=== PATIENT | female | born 1965 | race Caucasian/White ===

== ENCOUNTER 2020-03-06 18:28 | Emergency (ER) | payer OTHER ==
--- NOTE | 2020-03-06 19:07 | ED Physician Documentation ---
History of Present Illness - Stated complaint Stated Complaint: RT EAR PX/HEARING LOSS - Chief complaint Chief Complaint: Heent - History obtained from History obtained from: Patient (3 weeks of worsening right ear pain with loss of hearing. Some congestion and sinus pain to. No fevers.) Review of Systems Constitutional: denies: Fever, Chills Ears: reports: Ear pain. denies: Drainage/discharge Nose: reports: Rhinorrhea / runny nose, Congestion PD PAST MEDICAL HISTORY - Past Medical History Cardiovascular: Hypertension, High cholesterol Respiratory: None Neuro: None Endocrine/Autoimmune: None GI: None CARPENTER REPAIR: None : None HEENT: None Psych: None Musculoskeletal: None Derm: None - Past Surgical History Past Surgical History: Yes /CARPENTER REPAIR: section, Hysterectomy - Present Medications Home Medications: Ambulatory Orders Medication Instructions Recorded Confirmed Atorvastatin Calcium 40 mg PO DAILY 12/05/19 12/05/19 Cephalexin [Keflex] 500 mg PO Q6H #20 capsule 12/05/19 Lisinopril [Zestril] 20 mg PO DAILY 12/05/19 12/05/19 Phenazopyridine HCl [Pyridium] 200 mg PO TID PRN #6 tablet 12/05/19 hydroCHLOROthiazide 12.5 mg PO DAILY 12/05/19 12/05/19 [Hydrochlorothiazide] - Allergies Allergies/Adverse Reactions: Allergies Allergy/AdvReac Type Severity Reaction Status Date / Time No Known Drug Allergies Allergy Verified 03/06/20 18:34 - Social History Does the pt smoke?: No Smoking Status: Never smoker Does the pt drink ETOH?: No ETOH Use: Liquor Does the pt have substance abuse?: No - Immunizations Immunizations are current?: Yes - POLST Patient has POLST: No PD ED PE NORMAL - Vitals Vital signs reviewed: Yes - General General: Alert and oriented X 3, No acute distress - HEENT HEENT: Other (Initially unable to view the tympanic membrane on the right due to cerumen impaction. Left TM normal.) - Neck Neck: Supple, no meningeal sign, No bony TTP - Neuro Neuro: Alert and oriented X 3, Normal speech - Psych Psych: Normal mood, Normal affect Results - Vitals Vitals: Vital Signs - 24 hr 03/06/20 18:31 Temperature 37.2 C Heart Rate 90 Respiratory 16 Rate Blood Pressure 147/64 H O2 Saturation 97 Oxygen O2 Source Room air Procedures - General procedure General procedure: After syringe irrigation we were able to clear the right ear canal And subsequent examination showed no otitis media and her symptoms resolved. Departure - Departure Disposition: 01 Home, Self Care Clinical Impression: Impacted cerumen of right ear Condition: Good Record reviewed to determine appropriate education?: Yes Instructions: ED Earwax Removal
[2020-03-06 19:25] VITALS: BP 132/63
== END 2020-03-06 19:25 | disposition home or self-care (01) ==
LOC: ED 18:28
DX: H61.21 Impacted cerumen, right ear (principal); I10 Essential (primary) hypertension
CPT/HCPCS: 69209; 99281; 99282

== ENCOUNTER 2020-05-30 13:29 | Emergency (ER) | payer OTHER ==
--- NOTE | 2020-05-30 14:15 | ED Physician Documentation ---
PD HPI FEMALE - Stated complaint Stated Complaint: FEMALE - Chief complaint Chief Complaint: UTI - History obtained from History obtained from: Patient (54-year-old woman with relatively frequent UTIs presents with 3 days of urinary burning, suprapubic pressure, mild low back pain and generalized body aches consistent with prior episodes of UTI.) Review of Systems Constitutional: reports: Chills, Myalgias. denies: Fever GI: reports: Abdominal Pain. 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, Hysterectomy - Present Medications Home Medications: Ambulatory Orders Medication Instructions Recorded Confirmed Atorvastatin Calcium 40 mg PO DAILY 12/05/19 05/30/20 Lisinopril [Zestril] 20 mg PO DAILY 12/05/19 05/30/20 hydroCHLOROthiazide 12.5 mg PO DAILY 12/05/19 05/30/20 [Hydrochlorothiazide] levoFLOXacin [Levaquin] 250 mg PO DAILY #3 tablet 05/30/20 - Allergies Allergies/Adverse Reactions: Allergies Allergy/AdvReac Type Severity Reaction Status Date / Time No Known Drug Allergies Allergy Verified 05/30/20 13:58 - Social History Does the pt smoke?: No Smoking Status: Never smoker Does the pt drink ETOH?: No Does the pt have substance abuse?: No - Immunizations Immunizations are current?: Yes - POLST Patient has POLST: No PD ED PE NORMAL - Vitals Vital signs reviewed: Yes - General General: Alert and oriented X 3, No acute distress - Abdomen Abdomen: Soft, Non tender - Back Back: Other (Very mild bilateral CVA tenderness) - Neuro Neuro: Alert and oriented X 3, Normal speech Results - Vitals Vitals: Vital Signs - 24 hr 05/30/20 05/30/20 13:50 15:10 Temperature 36.6 C 36.6 C Heart Rate 89 88 Respiratory 16 88 H Rate Blood Pressure 153/66 H 148/70 H O2 Saturation 96 98 Oxygen O2 Source Room air - Labs Labs: Laboratory Tests 05/30/20 14:01 Urine Color YELLOW Urine Clarity CLEAR Urine pH 5.5 Ur Specific [place] >=1.030 H Urine Protein NEGATIVE Urine Glucose (UA) NEGATIVE Urine Ketones NEGATIVE Urine Occult Blood MODERATE H Urine Nitrite NEGATIVE Urine Bilirubin NEGATIVE Urine Urobilinogen 0.2 (NORMAL) Ur Leukocyte Esterase NEGATIVE Urine RBC 6-10 H Urine WBC 0-3 Ur Squamous Epith Cells FEW Squamous Urine Bacteria Few Urine Mucus Few Strands PD MEDICAL DECISION MAKING - ED course ED course: She presents with symptoms that are typical for recurrent cystitis. Urinalysis is relatively unimpressive with few bacteria and some blood. We will trial antibiotics, but she understands that if not improving quickly alternative diagnoses may need to be sought. Departure - Departure Disposition: Home, Self Care Clinical Impression: Cystitis Condition: Good Record reviewed to determine appropriate education?: Yes Instructions: ED UTI Cystitis Female Prescriptions: levoFLOXacin [Levaquin] 250 mg PO DAILY #3 tablet Comments: We will culture urine, if resistant bacteria isolated we will call [facility]. Return if worse. Discharge Date/Time: 05/30/20 15:10
[2020-05-30 14:42] LABS: BILIRUBIN,URINE NEGATIVE (NEGATIVE); GLUCOSE, URINE (UA) NEGATIVE (NEGATIVE); KETONES,URINE (UA) NEGATIVE (NEGATIVE); LEUKOCYTE ESTERASE, URINE NEGATIVE (NEGATIVE); NITRITE,URINE NEGATIVE (NEGATIVE); OCCULT BLOOD,URINE MODERATE (NEGATIVE); PH,URINE 5.5 PH (5.0-7.5); PROTEIN,URINE NEGATIVE (NEGATIVE); UROBILINOGEN,URINE 0.2 (NORMAL) E.U./dL (NORMAL)
[2020-05-30 14:45] LABS: CLARITY,URINE CLEAR (CLEAR)
[2020-05-30 14:57] LABS: BACTERIA,URINE Few /HPF (None Seen); MUCUS,URINE Few Strands; SQUAMOUS EPITHELIAL CELL,UR FEW Squamous (<= Few)
[2020-05-30] MEDS ORDERED: levoFLOXacin 250 MG TABLET PO STA (15:03)
[2020-05-30 15:12] VITALS: BP 148/70
== END 2020-05-30 15:10 | disposition home or self-care (01) ==
LOC: ED 13:29
DX: N30.91 Cystitis, unspecified with hematuria (principal); I10 Essential (primary) hypertension
CPT/HCPCS: 81001; 87086; 99283; A9270

== ENCOUNTER 2020-07-25 08:00 | Outpatient (CLI) | payer OTHER ==
[2020-07-25 12:04] LABS: BASOPHILS # (AUTO) 0.1 10^3/uL (0.0-0.1); BASOPHILS % (AUTO) 0.7 %; EOSINOPHILS # (AUTO) 0.1 10^3/uL (0.0-0.7); EOSINOPHILS % (AUTO) 0.7 %; HCT - HEMATOCRIT 44.7 % (37.0-47.0); HGB - HEMOGLOBIN 13.9 g/dL (12.0-16.0); LYMPHOCYTES # (AUTO) 2.3 10^3/uL (1.5-3.5); LYMPHOCYTES % (AUTO) 30.6 %; MEAN CORPUSCULAR HEMOGLOBIN 28.5 pg (27.0-31.0); MEAN CORPUSCULAR HGB CONC 31.1 g/dL (32.0-36.0); MEAN CORPUSCULAR VOLUME 91.6 fL (81.0-99.0); MEAN PLATELET VOLUME 9.7 fL (7.9-10.8); MONOCYTES # (AUTO) 0.6 10^3/uL (0.0-1.0); MONOCYTES % (AUTO) 8.1 %; NEUTROPHILS # (AUTO) 4.5 10^3/uL (1.5-6.6); NEUTROPHILS % (AUTO) 59.5 %; PLT - PLATELET COUNT 370 10^3/uL (130-450); RED BLOOD COUNT 4.88 10^6/uL (4.20-5.40); RED CELL DISTRIBUTION WIDTH 13.2 % (12.0-15.0); WHITE BLOOD COUNT 7.6 x10^3/uL (4.8-10.8)
[2020-07-25 12:24] LABS: ALBUMIN 4.5 g/dL (3.2-5.5); ALBUMIN/GLOBULIN RATIO 1.3 (1.0-2.2); ALKALINE PHOSPHATASE 55 IU/L (42-121); ALT ALANINE AMINOTRANSFERASE 48 IU/L (10-60); AST ASPARTATE AMINOTRANSFERASE 28 IU/L (10-42); BILIRUBIN,TOTAL 0.9 mg/dL (0.2-1.0); BUN - BLOOD UREA NITROGEN 18 mg/dL (6-20); CALCIUM 9.5 mg/dL (8.5-10.3); CARBON DIOXIDE - CO2 26 mmol/L (21-32); CHLORIDE 100 mmol/L (101-111); CHOL/HDL RATIO 8.4 (<4.4); CHOLESTEROL 388 mg/dL; CREATININE 0.7 mg/dL (0.4-1.0); GFR - MDRD 87 (>89); GLUCOSE 107 mg/dL (70-100); HDL CHOLESTEROL 46 mg/dL; LDL CHOLESTEROL,CALCULATED 294 mg/dL; LDL/HDL RATIO 6.4 (<4.4); POTASSIUM 3.9 mmol/L (3.5-5.0); SODIUM 137 mmol/L (135-145); TOTAL PROTEIN 8.1 g/dL (6.7-8.2); TRIGLYCERIDES 242 mg/dL; VLDL CHOLESTEROL 48 mg/dL
[2020-07-25 12:26] LABS: ESTIMATED AVERAGE GLUCOSE 111 mg/dL (70-100); HEMOGLOBIN A1c% 5.5 % (4.27-6.07)
[2020-07-25 12:33] LABS: THYROID STIMULATING HORMONE 1.46 uIU/mL (0.34-5.60)
== END 2020-07-25 23:59 | disposition home or self-care (01) ==
LOC: LAB.WCP 08:00
PROVIDERS: ATTEND Nurse Practitioner Family
DX: I10 Essential (primary) hypertension (principal); Z13.1 Encounter for screening for diabetes mellitus
CPT/HCPCS: 36415; 80053; 80061; 83036; 83721; 84443; 85025

== ENCOUNTER 2021-04-24 06:26 | Emergency (ER) | payer OTHER ==
[2021-04-24 06:34] VITALS: BP 183/83
[2021-04-24] MEDS ORDERED: CHERRY SYRUP 10 ML UDC PO ONE (06:43)
[2021-04-24] MEDS ORDERED: DEXAMETHASONE 10 MG/ML VIAL PO STA (06:43)
[2021-04-24 07:06] LABS: BASOPHILS # (AUTO) 0.1 10^3/uL (0.0-0.1); EOSINOPHILS # (AUTO) 0.4 10^3/uL (0.0-0.7); EOSINOPHILS % (AUTO) 6.5 %; HCT - HEMATOCRIT 45.3 % (37.0-47.0); HGB - HEMOGLOBIN 14.6 g/dL (12.0-16.0); LYMPHOCYTES # (AUTO) 2.1 10^3/uL (1.5-3.5); LYMPHOCYTES % (AUTO) 34.2 %; MEAN CORPUSCULAR HEMOGLOBIN 29.4 pg (27.0-31.0); MEAN CORPUSCULAR HGB CONC 32.2 g/dL (32.0-36.0); MEAN CORPUSCULAR VOLUME 91.1 fL (81.0-99.0); MEAN PLATELET VOLUME 9.1 fL (7.9-10.8); MONOCYTES # (AUTO) 0.5 10^3/uL (0.0-1.0); MONOCYTES % (AUTO) 8.3 %; NEUTROPHILS % (AUTO) 49.8 %; PLT - PLATELET COUNT 314 10^3/uL (130-450); RED BLOOD COUNT 4.97 10^6/uL (4.20-5.40)
[2021-04-24 07:08] LABS: RAPID STREP SCREEN Negative (Negative)
--- NOTE | 2021-04-24 07:15 | ED Physician Documentation ---
PD HPI HEENT - Stated complaint Stated Complaint: SWOLLEN FACE/LIPS - Chief complaint Chief Complaint: Heent - Additional information Additional information: Patient is a 55-year-old female presenting to the emergency department with sore throat, lip swelling, tender glands. Endorses for 1 week history of frequent sneezing, rhinorrhea and eye itchiness Which she attributed to her regular seasonal allergies. Reports 3 days ago began to experience swelling in her upper lip. States that this has been stable for the last day and has not gotten worse however does state that she is never experienced this in the past. Denies any swelling in the lower lip, tongue or sensations of swelling in the back of her throat. Denies any changes in medications or contact with known allergens. Does report that she continues to have tender lymph nodes in her neck. Review of Systems Ten Systems: 10 systems reviewed and negative Constitutional: denies: Fever Cardiac: denies: Chest pain / pressure Respiratory: denies: Dyspnea GI: denies: Abdominal Pain : denies: Dysuria Skin: denies: Rash Musculoskeletal: denies: Neck pain Neurologic: denies: Generalized weakness Psychiatric: denies: Depressed PD PAST MEDICAL HISTORY - Past Medical History Past Medical History: Yes Cardiovascular: Hypertension, High cholesterol Respiratory: None Neuro: None Endocrine/Autoimmune: None GI: None ORAL AND MAXILLOFACIAL SURGERY: None : None HEENT: None Psych: None Musculoskeletal: None Derm: None - Past Surgical History Past Surgical History: Yes /ORAL AND MAXILLOFACIAL SURGERY: section, Hysterectomy - Present Medications Home Medications: Ambulatory Orders Medication Instructions Recorded Confirmed Atorvastatin Calcium 40 mg PO DAILY 12/05/19 05/30/20 Lisinopril [Zestril] 20 mg PO DAILY 12/05/19 05/30/20 hydroCHLOROthiazide 12.5 mg PO DAILY 12/05/19 05/30/20 [Hydrochlorothiazide] levoFLOXacin [Levaquin] 250 mg PO DAILY #3 tablet 05/30/20 - Allergies Allergies/Adverse Reactions: Allergies Allergy/AdvReac Type Severity Reaction Status Date / Time simvastatin [From Zocor] AdvReac Unknown Verified 04/24/21 06:34 - Social History Does the pt smoke?: No Smoking Status: Never smoker Does the pt drink ETOH?: No Does the pt have substance abuse?: No - Immunizations Immunizations are current?: Yes - POLST Patient has POLST: No PD ED PE NORMAL - Vitals Vital signs reviewed: Yes - General General: Alert and oriented X 3 - Cardiac Cardiac: RRR - Respiratory Respiratory: No respiratory distress - Abdomen Abdomen: Normal bowel sounds, Non tender - Female Female : Deferred - Rectal Rectal: Deferred - Derm Derm: Normal color PD ED PE EXPANDED - HEENT HEENT: Other (Patient has a modest amount of soft tissue swelling to her upper lip as well as yellow crusted lesions below her naris consistent with impetigo.) Results - Vitals Vitals: Vital Signs - 24 hr 04/24/21 06:32 Temperature 36.3 C L Heart Rate 88 Respiratory 16 Rate Blood Pressure 183/83 H O2 Saturation 98 Oxygen O2 Source Room air - Labs Labs: Laboratory Tests 04/24/21 04/24/21 06:44 07:00 WBC 6.0 RBC 4.97 Hgb 14.6 Hct 45.3 MCV 91.1 MCH 29.4 MCHC 32.2 RDW 13.0 Plt Count 314 MPV 9.1 Neut # (Auto) 3.0 Lymph # (Auto) 2.1 Jones # (Auto) 0.5 Eos # (Auto) 0.4 Baso # (Auto) 0.1 Absolute Nucleated RBC 0.00 Nucleated RBC % 0.0 Group A Strep Rapid Negative PD MEDICAL DECISION MAKING - ED course Complexity details: reviewed results, d/w patient ED course: Patient is a 55-year-old female presenting with 1 week history of upper respiratory tract infection as well as 3 days of swelling to her upper lip, crusting below her nose consistent with impetigo, sore throat and bilateral jugulodigastric adenopathy. Afebrile, hemodynamically stable on arrival to the emergency department. Physical exam did demonstrate some swelling to her tonsils as well as tender adenopathy of the jugulodigastric nodes however there was no indication of peritonsillar abscess, retropharyngeal abscess or other deep space neck infection. I did obtain basic labs which were within Normal limits are generally nonactionable. She received a dose of Decadron in the emergency department and I did order for mupirocin for the soft tissue infection of her upper lip. At this time I will be signing out to the oncoming physician, please see their documentation for further detail.
[2021-04-24 07:16] LABS: INFECTIOUS MONONUCLEOSIS NEGATIVE (Negative)
[2021-04-24 07:19] LABS: ALBUMIN 4.6 g/dL (3.2-5.5); ALBUMIN/GLOBULIN RATIO 1.1 (1.0-2.2); BILIRUBIN,TOTAL 1.1 mg/dL (0.2-1.0); CALCIUM 9.4 mg/dL (8.5-10.3); CREATININE 0.6 mg/dL (0.4-1.0); POTASSIUM 3.8 mmol/L (3.5-5.0); TOTAL PROTEIN 8.6 g/dL (6.7-8.2)
[2021-04-24] MEDS ORDERED: cephALEXin 250 MG CAPSULE PO STA (07:25)
--- NOTE | 2021-04-24 07:26 | ED Physician Documentation ---
ED Addendum - Addendum Addendum: 04/24/21 07:[address] Crisostomo at shift change. Briefly this is a 55-year-old woman who has had maybe 36 hours of a rash and swelling of the upper lip. She was seen at the bedside and examined. She appears to have impetigo of the upper lip with some upper lip swelling. She will be treated with topical and oral antibiotics. Disposition: Discharged home Condition: Stable Prescriptions: 1. Keflex 500 mg p.o. 4 times daily for 7 days 2. Mupirocin ointment applied to affected area twice daily #2 tubes Diagnoses 1. Facial impetigo 2. Reactive adenopathy
[2021-04-24] MEDS ORDERED: ALBUTEROL NEB 2.5 MG/3 ML INH ONE (09:29)
== END 2021-04-24 07:38 | disposition home or self-care (01) ==
LOC: ED 06:26
DX: L01.00 Impetigo, unspecified (principal); R59.9 Enlarged lymph nodes, unspecified; I10 Essential (primary) hypertension
CPT/HCPCS: 36415; 80053; 85025; 86308; 87070; 87430; 99283; A9270

== ENCOUNTER 2021-11-25 18:56 | Emergency (ER) | payer OTHER ==
--- NOTE | 2021-11-25 20:02 | XRAY Report ---
PROCEDURE: Chest 2 View X-Ray INDICATIONS: cough TECHNIQUE: 2 view(s) of the chest. COMPARISON: None. FINDINGS: Surgical changes and devices: None. Lungs and pleura: No pleural effusions or pneumothorax. Lungs are clear. Mediastinum: Mediastinal contours are normal. Heart size is normal. Bones and chest wall: No suspicious bony abnormalities. Soft tissues appear unremarkable. IMPRESSION: No acute cardiopulmonary pathology. Reviewed by: Dewayne Wilcox MD on 11/25/2021 8:01 PM PDT Approved by: Dewayne Wilcox MD on 11/25/2021 8:01 PM PDT Station ID: [id number]
[2021-11-25] MEDS ORDERED: BENZONATATE 100 MG CAPSULE PO STA (20:04)
[2021-11-25] MEDS ORDERED: IBUPROFEN 800 MG TABLET PO STA (20:04)
[2021-11-25] MEDS ORDERED: PSEUDOEPHEDRINE 30 MG TABLET PO STA (20:04)
[2021-11-25 20:20] LABS: CORONAVIRUS 229E-RESP PCR NOT DETECTED; CORONAVIRUS HKU1-RESP PCR NOT DETECTED
[2021-11-25 20:21] LABS: B. PARAPERTUSSIS- RESP PCR PAN NOT DETECTED; B. PERTUSSIS- RESP PCR PANEL NOT DETECTED; C. PNEUMONIAE- RESP PCR PANEL NOT DETECTED; CORONAVIRUS NL63-RESP PCR DETECTED; CORONAVIRUS OC43-RESP PCR NOT DETECTED; HUMAN METAPNEUMOVIRUS NOT DETECTED; INFLUENZA A- RESP PCR PANEL NOT DETECTED; INFLUENZA B - RESP PCR PANEL NOT DETECTED; M. PNEUMONIAE- RESP PCR PANEL NOT DETECTED; PARAINFLUENZA VIRUS 1 NOT DETECTED; PARAINFLUENZA VIRUS 2 NOT DETECTED; PARAINFLUENZA VIRUS 3 NOT DETECTED; PARAINFLUENZA VIRUS 4 NOT DETECTED; RHINOVIRUS/ENTEROVIRUS NOT DETECTED; RSV- RESP PCR PANEL NOT DETECTED; SARS-CoV-2 -RESP PCR PANEL NOT DETECTED
--- NOTE | 2021-11-25 20:54 | ED Physician Documentation ---
PD HPI URI - Stated complaint Stated Complaint: FEVER/COUGH - Chief complaint Chief Complaint: Resp - History obtained from History obtained from: Patient - History of Present Illness Timing - onset: Today Pain level max: 6 Pain level now: 5 Associated symptoms: Fever, Chills, Nasal congestion, Rhinorrhea, Dry cough Contributing factors: Sick contact (Multiple children sick with same) Improves by: Rest Worsened by: Activity, Breathing - Additional information Additional information: Patient is a 56-year-old female who presents to the emergency department stating that she has had a cough and feeling feverish for the past 3 to 4 days. Took multiple COVID tests at home which were negative. [place] [employer] [place] She has had a history of pneumonia. Concerned about potential pneumonia. 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, Hysterectomy - Present Medications Home Medications: Ambulatory Orders Medication Instructions Recorded Confirmed Atorvastatin Calcium 40 mg PO DAILY 12/05/19 05/30/20 Lisinopril [Zestril] 20 mg PO DAILY 12/05/19 05/30/20 hydroCHLOROthiazide 12.5 mg PO DAILY 12/05/19 05/30/20 [Hydrochlorothiazide] levoFLOXacin [Levaquin] 250 mg PO DAILY #3 tablet 05/30/20 Mupirocin 2% Oint [Bactroban 2% 1 applic TOP BID #2 tub 04/24/21 Oint] cephALEXin [Keflex] 500 mg PO Q6H #28 cap 04/24/21 Benzonatate [Tessalon] 200 mg PO TID PRN #30 cap 11/25/21 Cetirizine HCl/Pseudoephedrine 1 each PO BID PRN #30 ea 11/25/21 [Zyrtec-D Tablet] - Allergies Allergies/Adverse Reactions: Allergies Allergy/AdvReac Type Severity Reaction Status Date / Time simvastatin [From Zocor] AdvReac Unknown Verified 12/21/21 06:34 - Social History Does the pt smoke?: No Smoking Status: Never smoker Does the pt drink ETOH?: No Does the pt have substance abuse?: No - Immunizations Immunizations are current?: Yes - POLST Patient has POLST: No PD ED PE NORMAL - Vitals Vital signs reviewed: Yes - General General: Alert and oriented X 3, No acute distress - HEENT HEENT: PERRL, Moist mucous membranes - Neck Neck: Supple, no meningeal sign - Cardiac Cardiac: RRR, Strong equal pulses - Respiratory Respiratory: No respiratory distress, Clear bilaterally - Abdomen Abdomen: Soft, Non tender, Non distended - Derm Derm: Warm and dry - Neuro Neuro: Alert and oriented X 3 - Psych Psych: Normal mood, Normal affect Results - Vitals Vitals: Vital Signs - 24 hr 11/25/21 11/25/21 19:10 21:35 Temperature 37.4 C Heart Rate 108 H 93 Respiratory 20 18 Rate Blood Pressure 162/82 H 158/79 H O2 Saturation 97 98 Oxygen O2 Source Room air - Labs Labs: Laboratory Tests 11/25/21 19:13 Nasal Adenovirus (PCR) NOT DETECTED Nasal B. parapertussis DNA (PCR) NOT DETECTED Nasal Coronavir 229E PCR NOT DETECTED Nasal Coronavir HKU1 PCR NOT DETECTED Nasal Coronavir NL63 PCR DETECTED A Nasal Coronavir OC43 PCR NOT DETECTED Nasal Enterovir/Rhinovir PCR NOT DETECTED Nasal Influenza B PCR NOT DETECTED Nasal Influenza A PCR NOT DETECTED Nasal Parainfluen 1 PCR NOT DETECTED Nasal Parainfluen 2 PCR NOT DETECTED Nasal Parainfluen 3 PCR NOT DETECTED Nasal Parainfluen 4 PCR NOT DETECTED Nasal RSV (PCR) NOT DETECTED Nasal B.pertussis DNA PCR NOT DETECTED Nasal C.pneumoniae (PCR) NOT DETECTED Ramiro Human Metapneumo PCR NOT DETECTED Nasal M.pneumoniae (PCR) NOT DETECTED Nasal SARS-CoV-2 (PCR) NOT DETECTED - Rads (name of study) cxr Radiology: Final report received, EMP read contemporaneously, See rad report PD MEDICAL DECISION MAKING - ED course Complexity details: reviewed results, re-evaluated patient, considered differential, d/w patient ED course: Patient is well-appearing, nontoxic. Afebrile. No hypoxia. No evidence of pneumonia on chest x-ray. Positive for coronavirus but not COVID. Feels better after Sudafed, Motrin and Tessalon. We will prescribe Sudafed and Tessalon for home. We will have her follow-up with her doctor for further care. Patient counseled regarding signs and symptoms for which I believe and urgent re- evaluation would be necessary. Patient with good understanding of and agreement to plan and is comfortable going home at this time This document was made in part using voice recognition software. While efforts are made to proofread this document, sound alike and grammatical errors may occur. Departure - Departure Disposition: Home, Self Care Clinical Impression: Viral URI Condition: Good Instructions: ED Viral Syndrome Follow-Up: Teresa Kearney PA [Primary Care Provider] - Within 1 week Prescriptions: Benzonatate [Tessalon] 200 mg PO TID PRN #30 cap PRN Reason: Cough Cetirizine HCl/Pseudoephedrine [Zyrtec-D Tablet] 1 each PO BID PRN #30 ea PRN Reason: nasal congestion Comments: Your prescriptions were sent to [facility] pharmacy. Please follow-up with your doctor for further care. You have tested positive for coronavirus, but this is a different coronavirus than COVID. Drink plenty of fluids and rest. You do not have pneumonia. Return if you worsen. Forms: Activity restrictions Discharge Date/Time: 11/25/21 21:36
[2021-11-25 21:36] VITALS: BP 158/79
== END 2021-11-25 21:36 | disposition home or self-care (01) ==
LOC: ED 18:56
DX: J06.9 Acute upper respiratory infection, unspecified (principal); B97.29 Other coronavirus as the cause of diseases classified elsewhere; Z20.822 Contact with and (suspected) exposure to COVID-19
CPT/HCPCS: 71046; 87633; 99282; 99284; A9270

== ENCOUNTER 2022-01-03 10:23 | Outpatient (CLI) | payer OTHER ==
--- NOTE | 2022-01-03 11:35 | MRI Report ---
PROCEDURE: Brain W/O INDICATIONS: MIXED HEADACHE TECHNIQUE: Noncontrast axial T1 spin echo, axial T2 fast spin echo, sagittal and axial FLAIR, coronal T2 fast sp in echo, axial gradient echo, axial diffusion and ADC through the brain. COMPARISON: None. FINDINGS: Image quality: Excellent. CSF Spaces: Basal cisterns are patent. No extra-axial fluid collections. Ventricles are normal in size and shape. Brain: No intracranial masses or hemorrhage. Ramos/white matter interface is normal. Brainstem appe ars normal. Diffusion-weighted images demonstrate no acute ischemic insult. No chronic ischemic ins ults. Normal intravascular flow voids are present. Skull and face: Calvarium has normal marrow signal. Orbits appear normal. Sinuses: Aerated secretions and mucosal thickening in the bilateral maxillary sinuses, sphenoid sinus es, anterior ethmoid air cells. IMPRESSION: Mucosal thickening and aerated secretions in the bilateral maxillary sinuses, anterior ethmoid air ce lls, and sphenoid sinuses. Correlate for acute sinusitis. Otherwise unremarkable MRI of the brain. Reviewed by: Berlin Corley MD on 01/03/2022 11:34 AM PDT Approved by: Berlin Corley MD on 01/03/2022 11:34 AM PDT Station ID: [id number]
== END 2022-01-03 10:24 | disposition home or self-care (01) ==
LOC: DI 10:23
PROVIDERS: ATTEND Physician Assistant
DX: G44.89 Other headache syndrome (principal)

== ENCOUNTER 2022-07-17 07:42 | Outpatient (CLI) | payer OTHER ==
[2022-07-17 07:53] LABS: BASOPHILS # (AUTO) 0.1 10^3/uL (0.0-0.1); BASOPHILS % (AUTO) 0.7 %; EOSINOPHILS # (AUTO) 0.1 10^3/uL (0.0-0.7); EOSINOPHILS % (AUTO) 1.3 %; HCT - HEMATOCRIT 41.9 % (37.0-47.0); HGB - HEMOGLOBIN 13.2 g/dL (12.0-16.0); LYMPHOCYTES # (AUTO) 2.1 10^3/uL (1.5-3.5); LYMPHOCYTES % (AUTO) 26.1 %; MEAN CORPUSCULAR HEMOGLOBIN 28.8 pg (27.0-31.0); MEAN CORPUSCULAR HGB CONC 31.5 g/dL (32.0-36.0); MEAN CORPUSCULAR VOLUME 91.5 fL (81.0-99.0); MEAN PLATELET VOLUME 8.7 fL (7.9-10.8); MONOCYTES # (AUTO) 0.6 10^3/uL (0.0-1.0); MONOCYTES % (AUTO) 7.3 %; NEUTROPHILS # (AUTO) 5.3 10^3/uL (1.5-6.6); NEUTROPHILS % (AUTO) 64.4 %; PLT - PLATELET COUNT 339 10^3/uL (130-450); RED BLOOD COUNT 4.58 10^6/uL (4.20-5.40); WHITE BLOOD COUNT 8.2 x10^3/uL (4.8-10.8)
[2022-07-17 08:13] LABS: ALBUMIN 4.2 g/dL (3.2-5.5); ALBUMIN/GLOBULIN RATIO 1.2 (1.0-2.2); ALKALINE PHOSPHATASE 60 IU/L (42-121); ALT ALANINE AMINOTRANSFERASE 35 IU/L (10-60); AST ASPARTATE AMINOTRANSFERASE 21 IU/L (10-42); BILIRUBIN,TOTAL 0.7 mg/dL (0.2-1.0); BUN - BLOOD UREA NITROGEN 12 mg/dL (6-20); CALCIUM 9.2 mg/dL (8.5-10.3); CARBON DIOXIDE - CO2 30 mmol/L (21-32); CHLORIDE 98 mmol/L (101-111); CHOL/HDL RATIO 5.4 (<4.4); CHOLESTEROL 214 mg/dL; CREATININE 0.7 mg/dL (0.4-1.0); GFR - MDRD 86 (>89); GLUCOSE 98 mg/dL (70-100); HDL CHOLESTEROL 40 mg/dL; LDL CHOLESTEROL,CALCULATED 138 mg/dL; LDL/HDL RATIO 3.5 (<4.4); POTASSIUM 3.4 mmol/L (3.5-5.0); SODIUM 137 mmol/L (135-145); TOTAL PROTEIN 7.6 g/dL (6.7-8.2); TRIGLYCERIDES 178 mg/dL; VLDL CHOLESTEROL 36 mg/dL
[2022-07-17 08:23] LABS: THYROID STIMULATING HORMONE 0.88 uIU/mL (0.34-5.60)
[2022-07-17 11:16] LABS: ESTIMATED AVERAGE GLUCOSE 117 mg/dL (70-100); HEMOGLOBIN A1c% 5.7 % (4.27-6.07)
== END 2022-07-17 07:43 | disposition home or self-care (01) ==
LOC: LAB 07:42
PROVIDERS: ATTEND Internal Medicine Cardiovascular Disease
DX: E78.5 Hyperlipidemia, unspecified (principal); Z13.1 Encounter for screening for diabetes mellitus; R00.2 Palpitations; I10 Essential (primary) hypertension
CPT/HCPCS: 36415; 80053; 80061; 83036; 83721; 84443; 85025

== ENCOUNTER 2022-08-08 21:50 | Emergency (ER) | payer OTHER ==
--- OUTSIDE RECORDS SUMMARY | 2022-08-08 22:50 | EXTERNAL MEDICAL SUMMARY RPT | Continuity of Care Document ---
:1965 Author Organization [facility] Address [address] [place] [address] Phone Care Team Providers Name Role Phone Jessica Juarez Unavailable Unavailable Allergies No information. Encounters No information. Functional Status No information. Immunizations No information. Medications date description facility 2022-07-07 00:00 Phenazopyridine [facility] 2022-07-07 00:00 Lisinopril-Hydrochlorothiazide [facility] 2022-07-07 00:00 Cephalexin [facility] 2022-07-07 00:00 [facility] Problems date description facility 2022-07-07 11:27 [facility] 2022-07-07 11:35 [facility] 2022-07-08 00:36 [facility] Procedures No information. Results/Labs test date author facility value unit interpret ation Result panel 1 (unknown) (no (unknown) (unknown) (no value) (units (unk nown) date) unknown) (unknown) (no (unknown) (unknown) 07/07/22 (units (unkno wn) date) unknown) (unknown) (no (unknown) (unknown) Age/Sex: 57 / F (units (unknown) date) Date of Service: unknown) (unknown) (no (unknown) (unknown) Allergies (units (unkn own) date) unknown) (unknown) (no (unknown) (unknown) [facility] (units (unknown) date) Medicine unknown) (unknown) (no (unknown) (unknown) Ranjana ID (units ( unknown) date) [id number] unknown) (unknown) (no (unknown) (unknown) Attending Dr: (units ( unknown) date) Tara Gibson unknown) BREAD DUMPER (unknown) (no (unknown) (unknown) : 1965 (units (unknown) date) Acct:[id number] unknown) (unknown) (no (unknown) (unknown) Dept at (units (unkno wn) date) . unknown) (unknown) (no (unknown) (unknown) Documented By: (units (unknown) date) Barney Gibsonne unknown) [facility] 07/07/22 1126 (unknown) (no (unknown) (unknown) Draft (units (unkno wn) date) unknown) (unknown) (no (unknown) (unknown) Intake Note: (units (u nknown) date) unknown) (unknown) (no (unknown) (unknown) Intake performed (units (unknown) date) by: unknown) Hira Montgomery (unknown) (no (unknown) (unknown) Intake (units (unkno wn) date) unknown) (unknown) (no (unknown) (unknown) Intake- Clincial (units (unknown) date) Staff unknown) (unknown) (no (unknown) (unknown) LEG PAIN, (units (unkn own) date) STIFFNESS unknown) (unknown) (no (unknown) (unknown) Loc: [facility] (units (unkno wn) date) unknown) (unknown) (no (unknown) (unknown) [id number] (units (unk nown) date) unknown) (unknown) (no (unknown) (unknown) No Known Drug (units ( unknown) date) Allergies Allergy unknown) (Unknown, Unverified 08/13/17 12:18) (unknown) (no (unknown) (unknown) Patient: (units (unkno wn) date) Ioana Clemons unknown) R MR#: (unknown) (no (unknown) (unknown) Pt presents for (units (unknown) date) a possible UTI. 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 (units (unknown) date) If there are any unknown) questions, please contact the Medical Records (unknown) (no (unknown) (unknown) may occur. (units (unk nown) date) Occasional unknown) wrong-word or 'sound-alike' substitutions may have (unknown) (no (unknown) (unknown) occurred due to (units (unknown) date) the inherent unknown) limitations of voice recognition software. Please (unknown) (no (unknown) (unknown) read the note (units ( unknown) date) carefully and unknown) recognize, using context, where these substitutions (unknown) (no (unknown) (unknown) simvastatin (units (un known) date) [From ZOCOR] unknown) Adverse Reaction (Severe, Unverified 08/13/17 12:18) (unknown) (no (unknown) (unknown) software. 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 Result panel 2 (unknown) (no (unknown) (unknown) (no value) (units (unk nown) date) unknown) (unknown) (no (unknown) (unknown) 07/07/22 (units (unkno wn) date) unknown) (unknown) (no (unknown) (unknown) 11:35 (units (unkno wn) date) unknown) (unknown) (no (unknown) (unknown) Age/Sex: 57 / F (units (unknown) date) Date of Service: unknown) (unknown) (no (unknown) (unknown) Allergies (units (unkn own) date) unknown) (unknown) (no (unknown) (unknown) [facility] (units (unknown) date) Medicine unknown) (unknown) (no (unknown) (unknown) [place] (units ( unknown) date) [id number] unknown) (unknown) (no (unknown) (unknown) Assessment + (units (u nknown) date) Plan unknown) (unknown) (no (unknown) (unknown) Attending Dr: (units ( unknown) date) Tara Gibson unknown) BREAD DUMPER (unknown) (no (unknown) (unknown) BMI 32.0 (units (unkno wn) date) unknown) (unknown) (no (unknown) (unknown) BP 124/72 (units (unkn own) date) unknown) (unknown) (no (unknown) (unknown) Blood Pressure (units (unknown) date) Location Lt unknown) brachial (unknown) (no (unknown) (unknown) : 1965 (units (unknown) date) Acct:[id number] unknown) (unknown) (no (unknown) (unknown) Dept at (units (unkno wn) date) . unknown) (unknown) (no (unknown) (unknown) Documented By: (units (unknown) date) Tara Gibson unknown) BREAD DUMPER 07/07/22 1126 (unknown) (no (unknown) (unknown) Draft (units (unkno wn) date) unknown) (unknown) (no (unknown) (unknown) Height 5 ft 2 in (units (unknown) date) unknown) (unknown) (no (unknown) (unknown) Intake Note: (units (u nknown) date) unknown) (unknown) (no (unknown) (unknown) Intake performed (units (unknown) date) by: unknown) Hira Montgomery (unknown) (no (unknown) (unknown) Intake (units (unkno wn) date) unknown) (unknown) (no (unknown) (unknown) Intake- Clincial (units (unknown) date) Staff unknown) (unknown) (no (unknown) (unknown) LEG PAIN, (units (unkn own) date) STIFFNESS unknown) (unknown) (no (unknown) (unknown) Loc: [facility] (units (unkno wn) date) unknown) (unknown) (no (unknown) (unknown) [id number] (units (unk nown) date) unknown) (unknown) (no (unknown) (unknown) Medications (units (un known) date) unknown) (unknown) (no (unknown) (unknown) No Known Drug (units ( unknown) date) Allergies Allergy unknown) (Unknown, Unverified 07/07/22 11:34) (unknown) (no (unknown) (unknown) Orders (units (unkno wn) date) unknown) (unknown) (no (unknown) (unknown) Orders: (units (unkno wn) date) unknown) (unknown) (no (unknown) (unknown) Oxygen Delivery (units (unknown) date) Method room air unknown) (unknown) (no (unknown) (unknown) [facility] (units (unkno wn) date) unknown) (unknown) (no (unknown) (unknown) POC Urine Dip (units ( unknown) date) Today R30.0 - unknown) Dysuria (unknown) (no (unknown) (unknown) Patient: (units (unkno wn) date) Ioana Clemons unknown) R MR#: (unknown) (no (unknown) (unknown) Position Sitting (units (unknown) date) unknown) (unknown) (no (unknown) (unknown) Pt presents for (units (unknown) date) a possible UTI. unknown) Having burning and urgency for 3 days. (unknown) (no (unknown) (unknown) Pulse 86 (units (unkno wn) date) unknown) (unknown) (no (unknown) (unknown) Pulse Oximetry (units (unknown) date) (%) 99 unknown) (unknown) (no (unknown) (unknown) Pulse Source (units (u nknown) date) Monitor unknown) (unknown) (no (unknown) (unknown) Reason For Visit (units (unknown) date) unknown) (unknown) (no (unknown) (unknown) Respiration 14 (units (unknown) date) unknown) (unknown) (no (unknown) (unknown) Signed By: (units (unk nown) date) unknown) (unknown) (no (unknown) (unknown) Smoking Status: (units (unknown) date) Never smoker unknown) (unknown) (no (unknown) (unknown) Temp 97.8 F (units (un known) date) unknown) (unknown) (no (unknown) (unknown) Temp Source Skin (units (unknown) date) unknown) (unknown) (no (unknown) (unknown) This note may (units ( unknown) date) have been all or unknown) partially generated using voice recognition (unknown) (no (unknown) (unknown) Tobacco + (units (unkn own) date) Substance Use unknown) (unknown) (no (unknown) (unknown) Tobacco Status (units (unknown) date) unknown) (unknown) (no (unknown) (unknown) Urine Culture (units ( unknown) date) Today R30.0 - unknown) Dysuria (unknown) (no (unknown) (unknown) Visit Reasons: (units (unknown) date) [employer] poss UTI unknown) (unknown) (no (unknown) (unknown) Vitals (units (unkno wn) date) unknown) (unknown) (no (unknown) (unknown) Walk In Clinic (units (unknown) date) Visit unknown) (unknown) (no (unknown) (unknown) Weight 175 lb 4 (units (unknown) date) oz unknown) (unknown) (no (unknown) (unknown) [History (units (unkno wn) date) Confirmed unknown) 07/07/22] (unknown) (no (unknown) (unknown) atorvastatin 10 (units (unknown) date) mg tablet 10 mg unknown) PO DAILY 07/07/22 [History Confirmed 07/07/22] (unknown) (no (unknown) (unknown) have occurred. (units (unknown) date) If there are any unknown) questions, please contact the Medical Records (unknown) (no (unknown) (unknown) lisinopril 20 (units ( unknown) date) mg-hydrochlorothi unknown) azide 25 mg tablet 1 tab PO DAILY 07/07/22 (unknown) (no (unknown) (unknown) may occur. (units (unk nown) date) Occasional unknown) wrong-word or 'sound-alike' substitutions may have (unknown) (no (unknown) (unknown) occurred due to (units (unknown) date) the inherent unknown) limitations of voice recognition software. Please (unknown) (no (unknown) (unknown) read the note (units ( unknown) date) carefully and unknown) recognize, using context, where these substitutions (unknown) (no (unknown) (unknown) simvastatin (units (un known) date) [From ZOCOR] unknown) Adverse Reaction (Severe, Unverified 07/07/22 11:34) (unknown) (no (unknown) (unknown) software. 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 Result panel 3 (unknown) (no (unknown) (unknown) (no value) (units (unk nown) date) unknown) (unknown) (no (unknown) (unknown) (1) UTI (urinary (units (unknown) date) tract infection): unknown) (unknown) (no (unknown) (unknown) 07/07/22 1143 (units ( unknown) date) unknown) (unknown) (no (unknown) (unknown) 07/07/22 (units (unkno wn) date) unknown) (unknown) (no (unknown) (unknown) 07/07/22] (units (unkn own) date) unknown) (unknown) (no (unknown) (unknown) 11:35 (units (unkno wn) date) unknown) (unknown) (no (unknown) (unknown) Age/Sex: 57 / F (units (unknown) date) Date of Service: unknown) (unknown) (no (unknown) (unknown) Allergies (units (unkn own) date) unknown) (unknown) (no (unknown) (unknown) [facility] (units (unknown) date) Medicine unknown) (unknown) (no (unknown) (unknown) [place] (units ( unknown) date) [id number] unknown) (unknown) (no (unknown) (unknown) Assessment + Plan (units (unknown) date) unknown) (unknown) (no (unknown) (unknown) Attending Dr: (units ( unknown) date) Tara Gibson unknown) BREAD DUMPER (unknown) (no (unknown) (unknown) BMI 32.0 (units (unkno wn) date) unknown) (unknown) (no (unknown) (unknown) BP 124/72 (units (unkn own) date) unknown) (unknown) (no (unknown) (unknown) Blood Pressure (units (unknown) date) Location Lt unknown) brachial (unknown) (no (unknown) (unknown) Chief Complaint (units (unknown) date) unknown) (unknown) (no (unknown) (unknown) Chief Complaint: (units (unknown) date) Dysuria unknown) (unknown) (no (unknown) (unknown) Const (units (unkno wn) date) unknown) (unknown) (no (unknown) (unknown) : 1965 (units (unknown) date) Acct:[id number] unknown) (unknown) (no (unknown) (unknown) Dept at (units (unkno wn) date) . unknown) (unknown) (no (unknown) (unknown) Details: (units (unkno wn) date) unknown) (unknown) (no (unknown) (unknown) Documented By: (units (unknown) date) Tara Gibson unknown) BREAD DUMPER 07/07/22 1126 (unknown) (no (unknown) (unknown) Effort + (units (unkno wn) date) Inspection: normal unknown) respiratory effort (unknown) (no (unknown) (unknown) Exam (units (unkno wn) date) unknown) (unknown) (no (unknown) (unknown) Eyes (units (unkno wn) date) unknown) (unknown) (no (unknown) (unknown) GI (units (unkno wn) date) unknown) (unknown) (no (unknown) (unknown) (units (unkno wn) date) unknown) (unknown) (no (unknown) (unknown) General: (units (unkno wn) date) appearance normal, unknown) both eyes and all related structures (unknown) (no (unknown) (unknown) General: (units (unkno wn) date) cooperative, unknown) healthy appearing, comfortable and no acute distress (unknown) (no (unknown) (unknown) General: no (units (un known) date) rashes or lesions unknown) noted (unknown) (no (unknown) (unknown) HENMT (units (unkno wn) date) unknown) (unknown) (no (unknown) (unknown) HPI and exam (units (u nknown) date) indicate need for unknown) point of care urine testing which does indicate (unknown) (no (unknown) (unknown) HPI (units (unkno wn) date) unknown) (unknown) (no (unknown) (unknown) Head: normal to (units (unknown) date) inspection unknown) (unknown) (no (unknown) (unknown) Height 157.48 cm (units (unknown) date) unknown) (unknown) (no (unknown) (unknown) Inspection: (units (un known) date) normal to unknown) inspection (unknown) (no (unknown) (unknown) Intake Note: (units (u nknown) date) unknown) (unknown) (no (unknown) (unknown) Intake performed (units (unknown) date) by: Hira Montgomery unknown) (unknown) (no (unknown) (unknown) Intake (units (unkno wn) date) unknown) (unknown) (no (unknown) (unknown) Intake- Clincial (units (unknown) date) Staff unknown) (unknown) (no (unknown) (unknown) LEG PAIN, (units (unkn own) date) STIFFNESS unknown) (unknown) (no (unknown) (unknown) Loc: [facility] (units (unkno wn) date) unknown) (unknown) (no (unknown) (unknown) [id number] (units (unk nown) date) unknown) (unknown) (no (unknown) (unknown) Medications (units (un known) date) unknown) (unknown) (no (unknown) (unknown) Medications: (units (u nknown) date) unknown) (unknown) (no (unknown) (unknown) Neck (units (unkno wn) date) unknown) (unknown) (no (unknown) (unknown) Neck: normal (units (u nknown) date) visual inspection unknown) and full ROM (unknown) (no (unknown) (unknown) New (units (unkno wn) date) unknown) (unknown) (no (unknown) (unknown) No CVA tenderness (units (unknown) date) unknown) (unknown) (no (unknown) (unknown) No Known Drug (units ( unknown) date) Allergies Allergy unknown) (Unknown, Unverified 07/07/22 11:34) (unknown) (no (unknown) (unknown) Orders (units (unkno wn) date) unknown) (unknown) (no (unknown) (unknown) Orders: (units (unkno wn) date) unknown) (unknown) (no (unknown) (unknown) Other: (units (unkno wn) date) unknown) (unknown) (no (unknown) (unknown) Oxygen Delivery (units (unknown) date) Method room air unknown) (unknown) (no (unknown) (unknown) PFSH (units (unkno wn) date) unknown) (unknown) (no (unknown) (unknown) POC Urine Dip (units ( unknown) date) Today R30.0 - unknown) Dysuria (unknown) (no (unknown) (unknown) Palpation: soft (units (unknown) date) unknown) (unknown) (no (unknown) (unknown) Patient presents (units (unknown) date) to walk-in clinic unknown) with complaints of dysuria, urinary urgency (unknown) (no (unknown) (unknown) Patient: (units (unkno wn) date) Ioana Clemons R unknown) MR#: (unknown) (no (unknown) (unknown) Plan (units (unkno wn) date) unknown) (unknown) (no (unknown) (unknown) Position Sitting (units (unknown) date) unknown) (unknown) (no (unknown) (unknown) Pt presents for a (units (unknown) date) possible UTI. unknown) Having burning and urgency for 3 days. (unknown) (no (unknown) (unknown) Pulse 86 (units (unkno wn) date) unknown) (unknown) (no (unknown) (unknown) Pulse Oximetry (units (unknown) date) (%) 99 unknown) (unknown) (no (unknown) (unknown) Pulse Source (units (u nknown) date) Monitor unknown) (unknown) (no (unknown) (unknown) Qualifiers: (units (un known) date) unknown) (unknown) (no (unknown) (unknown) Reason For Visit (units (unknown) date) unknown) (unknown) (no (unknown) (unknown) Resp (units (unkno wn) date) unknown) (unknown) (no (unknown) (unknown) Respiration 14 (units (unknown) date) unknown) (unknown) (no (unknown) (unknown) She denies fever, (units (unknown) date) vomiting, unknown) diarrhea, vaginal discharge or lesions. Patient (unknown) (no (unknown) (unknown) Signed By: (units (unk nown) date) <Electronically unknown) signed by Tara Gibson> (unknown) (no (unknown) (unknown) Signed (units (unkno wn) date) unknown) (unknown) (no (unknown) (unknown) Skin (units (unkno wn) date) unknown) (unknown) (no (unknown) (unknown) Smoking Status: (units (unknown) date) Never smoker unknown) (unknown) (no (unknown) (unknown) Suprapubic (units (unk nown) date) tenderness and unknown) pressure with palpation (unknown) (no (unknown) (unknown) Temp 97.8 F (units (un known) date) unknown) (unknown) (no (unknown) (unknown) Temp Source Skin (units (unknown) date) unknown) (unknown) (no (unknown) (unknown) This note may (units ( unknown) date) have been all or unknown) partially generated using voice recognition (unknown) (no (unknown) (unknown) Tobacco + (units (unkn own) date) Substance Use unknown) (unknown) (no (unknown) (unknown) Tobacco Status (units (unknown) date) unknown) (unknown) (no (unknown) (unknown) Tylenol/ibuprofen (units (unknown) date) for pain or unknown) discomfort. 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 She is (units (un known) date) alert, oriented unknown) and comfortable (unknown) (no (unknown) (unknown) and frequency for (units (unknown) date) 3 days. Patient unknown) also has suprapubic pressure and back pain. (unknown) (no (unknown) (unknown) atorvastatin 10 (units (unknown) date) mg tablet 10 mg PO unknown) DAILY 07/07/22 [History Confirmed 07/07/22] (unknown) (no (unknown) (unknown) cephalexin 500 mg (units (unknown) date) PO QID 5 days 20 unknown) caps 0RF (unknown) (no (unknown) (unknown) cephalexin 500 mg (units (unknown) date) capsule 500 mg PO unknown) QID 5 days #20 caps 07/07/22 [Rx Confirmed (unknown) (no (unknown) (unknown) denies chance of (units (unknown) date) STDs. She is been unknown) trying to drink a lot of water to help with (unknown) (no (unknown) (unknown) have occurred. If (units (unknown) date) there are any unknown) questions, please contact the Medical Records (unknown) (no (unknown) (unknown) hematuria (units (unkn own) date) Qualified Code(s): unknown) N30.01 - Acute cystitis with hematuria (unknown) (no (unknown) (unknown) lisinopril 20 (units ( unknown) date) mg-hydrochlorothia unknown) zide 25 mg tablet 1 tab PO DAILY 07/07/22 (unknown) (no (unknown) (unknown) may occur. (units (unk nown) date) Occasional unknown) wrong-word or 'sound-alike' substitutions may have (unknown) (no (unknown) (unknown) occurred due to (units (unknown) date) the inherent unknown) limitations of voice recognition software. Please (unknown) (no (unknown) (unknown) phenazopyridine (units (unknown) date) (Pyridium) 200 mg unknown) PO TID 6 doses 6 tabs 0RF (unknown) (no (unknown) (unknown) phenazopyridine (units (unknown) date) 200 mg tablet unknown) (Pyridium) 200 mg PO TID 6 doses #6 tabs 07/07/22 (unknown) (no (unknown) (unknown) read the note (units ( unknown) date) carefully and unknown) recognize, using context, where these substitutions (unknown) (no (unknown) (unknown) simvastatin [From (units (unknown) date) ZOCOR] Adverse unknown) Reaction (Severe, Unverified 07/07/22 11:34) (unknown) (no (unknown) (unknown) software. 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 Follow-up with primary care as needed (unknown) (no (unknown) (unknown) symptoms. Patient (units (unknown) date) did take Pyridium unknown) that she had left over from about a year (unknown) (no (unknown) (unknown) that patient has (units (unknown) date) urinary tract unknown) infection with positive blood and leukocytes. We (unknown) (no (unknown) (unknown) will start (units (unk nown) date) antibiotics, and unknown) send urine off for culture. Rest, increase fluids. Result panel 4 (unknown) (no (unknown) (unknown) (no value) (units (unk nown) date) unknown) (unknown) (no (unknown) (unknown) (1) UTI (urinary (units (unknown) date) tract infection): unknown) (unknown) (no (unknown) (unknown) ADDENDUM (units (u nknown) date) unknown) (unknown) (no (unknown) (unknown) 07/07/22 1143 (units ( unknown) date) unknown) (unknown) (no (unknown) (unknown) 07/07/22 1244 (units ( unknown) date) unknown) (unknown) (no (unknown) (unknown) 07/07/22 12:44 (units (unknown) date) unknown) (unknown) (no (unknown) (unknown) 07/07/22 (units (unkno wn) date) unknown) (unknown) (no (unknown) (unknown) 07/07/22] (units (unkn own) date) unknown) (unknown) (no (unknown) (unknown) 11:35 (units (unkno wn) date) unknown) (unknown) (no (unknown) (unknown) 12:44 (units (unkno wn) date) unknown) (unknown) (no (unknown) (unknown) 4 (units (unkno wn) date) unknown) (unknown) (no (unknown) (unknown) :44 (units (unkno wn) date) unknown) (unknown) (no (unknown) (unknown) AZO (units (unkno wn) date) unknown) (unknown) (no (unknown) (unknown) Addendum (units (unkno wn) date) Documented By: MA unknown) Hira Montgomery (unknown) (no (unknown) (unknown) Addendum Signed (units (unknown) date) By: unknown) (unknown) (no (unknown) (unknown) Age/Sex: 57 / F (units (unknown) date) Date of Service: unknown) (unknown) (no (unknown) (unknown) Allergies (units (unkn own) date) unknown) (unknown) (no (unknown) (unknown) [facility] (units (unknown) date) Medicine unknown) (unknown) (no (unknown) (unknown) [place] (units ( unknown) date) [id number] unknown) (unknown) (no (unknown) (unknown) Assessment + Plan (units (unknown) date) unknown) (unknown) (no (unknown) (unknown) Attending Dr: (units ( unknown) date) Tara Gibson unknown) BREAD DUMPER (unknown) (no (unknown) (unknown) BMI 32.0 (units (unkno wn) date) unknown) (unknown) (no (unknown) (unknown) BP 124/72 (units (unkn own) date) unknown) (unknown) (no (unknown) (unknown) Blood Pressure (units (unknown) date) Location Lt unknown) brachial (unknown) (no (unknown) (unknown) Chief Complaint (units (unknown) date) unknown) (unknown) (no (unknown) (unknown) Chief Complaint: (units (unknown) date) Dysuria unknown) (unknown) (no (unknown) (unknown) Const (units (unkno wn) date) unknown) (unknown) (no (unknown) (unknown) : 1965 (units (unknown) date) Acct:[id number] unknown) (unknown) (no (unknown) (unknown) Dept at (units (unkno wn) date) . unknown) (unknown) (no (unknown) (unknown) Details: (units (unkno wn) date) unknown) (unknown) (no (unknown) (unknown) Documented By: (units (unknown) date) Tara Gibson unknown) BREAD DUMPER 07/07/22 1126 (unknown) (no (unknown) (unknown) Effort + (units (unkno wn) date) Inspection: normal unknown) respiratory effort (unknown) (no (unknown) (unknown) Exam (units (unkno wn) date) unknown) (unknown) (no (unknown) (unknown) Eyes (units (unkno wn) date) unknown) (unknown) (no (unknown) (unknown) GI (units (unkno wn) date) unknown) (unknown) (no (unknown) (unknown) (units (unkno wn) date) unknown) (unknown) (no (unknown) (unknown) General: (units (unkno wn) date) appearance normal, unknown) both eyes and all related structures (unknown) (no (unknown) (unknown) General: (units (unkno wn) date) cooperative, unknown) healthy appearing, comfortable and no acute distress (unknown) (no (unknown) (unknown) General: no (units (un known) date) rashes or lesions unknown) noted (unknown) (no (unknown) (unknown) HENMT (units (unkno wn) date) unknown) (unknown) (no (unknown) (unknown) HPI and exam (units (u nknown) date) indicate need for unknown) point of care urine testing which does indicate (unknown) (no (unknown) (unknown) HPI (units (unkno wn) date) unknown) (unknown) (no (unknown) (unknown) Head: normal to (units (unknown) date) inspection unknown) (unknown) (no (unknown) (unknown) Height 157.48 cm (units (unknown) date) unknown) (unknown) (no (unknown) (unknown) Inspection: (units (un known) date) normal to unknown) inspection (unknown) (no (unknown) (unknown) Intake Note: (units (u nknown) date) unknown) (unknown) (no (unknown) (unknown) Intake performed (units (unknown) date) by: Hira Montgomery unknown) (unknown) (no (unknown) (unknown) Intake (units (unkno wn) date) unknown) (unknown) (no (unknown) (unknown) Intake- Clincial (units (unknown) date) Staff unknown) (unknown) (no (unknown) (unknown) LEG PAIN, (units (unkn own) date) STIFFNESS unknown) (unknown) (no (unknown) (unknown) Loc: [facility] (units (unkno wn) date) unknown) (unknown) (no (unknown) (unknown) [id number] (units (unk nown) date) unknown) (unknown) (no (unknown) (unknown) Medications (units (un known) date) unknown) (unknown) (no (unknown) (unknown) Medications: (units (u nknown) date) unknown) (unknown) (no (unknown) (unknown) Neck (units (unkno wn) date) unknown) (unknown) (no (unknown) (unknown) Neck: normal (units (u nknown) date) visual inspection unknown) and full ROM (unknown) (no (unknown) (unknown) New (units (unkno wn) date) unknown) (unknown) (no (unknown) (unknown) No CVA tenderness (units (unknown) date) unknown) (unknown) (no (unknown) (unknown) No Known Drug (units ( unknown) date) Allergies Allergy unknown) (Unknown, Unverified 07/07/22 11:34) (unknown) (no (unknown) (unknown) Office Procedure (units (unknown) date) Documentation unknown) entered by Hira Montgomery MA 07/07/22 12:44: (unknown) (no (unknown) (unknown) Orders (units (unkno wn) date) unknown) (unknown) (no (unknown) (unknown) Orders: (units (unkno wn) date) unknown) (unknown) (no (unknown) (unknown) Other: (units (unkno wn) date) unknown) (unknown) (no (unknown) (unknown) Oxygen Delivery (units (unknown) date) Method room air unknown) (unknown) (no (unknown) (unknown) PFSH (units (unkno wn) date) unknown) (unknown) (no (unknown) (unknown) POC Urine Dip (units ( unknown) date) Today R30.0 - unknown) Dysuria (unknown) (no (unknown) (unknown) Palpation: soft (units (unknown) date) unknown) (unknown) (no (unknown) (unknown) Patient presents (units (unknown) date) to walk-in clinic unknown) with complaints of dysuria, urinary urgency (unknown) (no (unknown) (unknown) Patient: (units (unkno wn) date) Ioana Clemons R unknown) MR#: (unknown) (no (unknown) (unknown) Plan (units (unkno wn) date) unknown) (unknown) (no (unknown) (unknown) Position Sitting (units (unknown) date) unknown) (unknown) (no (unknown) (unknown) Pt presents for a (units (unknown) date) possible UTI. unknown) Having burning and urgency for 3 days. (unknown) (no (unknown) (unknown) Pulse 86 (units (unkno wn) date) unknown) (unknown) (no (unknown) (unknown) Pulse Oximetry (units (unknown) date) (%) 99 unknown) (unknown) (no (unknown) (unknown) Pulse Source (units (u nknown) date) Monitor unknown) (unknown) (no (unknown) (unknown) Qualifiers: (units (un known) date) unknown) (unknown) (no (unknown) (unknown) Reason For Visit (units (unknown) date) unknown) (unknown) (no (unknown) (unknown) Resp (units (unkno wn) date) unknown) (unknown) (no (unknown) (unknown) Respiration 14 (units (unknown) date) unknown) (unknown) (no (unknown) (unknown) Results (units (unkno wn) date) unknown) (unknown) (no (unknown) (unknown) She denies fever, (units (unknown) date) vomiting, unknown) diarrhea, vaginal discharge or lesions. Patient (unknown) (no (unknown) (unknown) Signed By: (units (unk nown) date) <Electronically unknown) signed by Tara Gibson> (unknown) (no (unknown) (unknown) Signed with (units (un known) date) Addenda unknown) (unknown) (no (unknown) (unknown) Skin (units (unkno wn) date) unknown) (unknown) (no (unknown) (unknown) Smoking Status: (units (unknown) date) Never smoker unknown) (unknown) (no (unknown) (unknown) Suprapubic (units (unk nown) date) tenderness and unknown) pressure with palpation (unknown) (no (unknown) (unknown) Temp 97.8 F (units (un known) date) unknown) (unknown) (no (unknown) (unknown) Temp Source Skin (units (unknown) date) unknown) (unknown) (no (unknown) (unknown) This note may (units ( unknown) date) have been all or unknown) partially generated using voice recognition (unknown) (no (unknown) (unknown) Tobacco + (units (unkn own) date) Substance Use unknown) (unknown) (no (unknown) (unknown) Tobacco Status (units (unknown) date) unknown) (unknown) (no (unknown) (unknown) Tylenol/ibuprofen (units (unknown) date) for pain or unknown) discomfort. Return to the emergency department if (unknown) (no (unknown) (unknown) Urinary tract (units ( unknown) date) infection type: unknown) acute cystitis Hematuria presence: with (unknown) (no (unknown) (unknown) Urine Appearance (units (unknown) date) Cloudy Last Edit unknown) by Hira Montgomery MA on 07/07/22 12:44 (unknown) (no (unknown) (unknown) Urine Bilirubin (units (unknown) date) 2+ 2 mg/dL Last unknown) Edit by Hira Montgomery MA on 07/07/22 12:4 (unknown) (no (unknown) (unknown) Urine Blood 1+ 25 (units (unknown) date) Rene/uL Last Edit unknown) by Hira Montgomery MA on 07/07/22 12:44 (unknown) (no (unknown) (unknown) Urine Color (units (un known) date) [place] Last Edit unknown) by Hira Montgomery MA on 07/07/22 12:44 (unknown) (no (unknown) (unknown) Urine Culture (units ( unknown) date) Today R30.0 - unknown) Dysuria (unknown) (no (unknown) (unknown) Urine Dipstick (units (unknown) date) unknown) (unknown) (no (unknown) (unknown) Urine Glucose +- (units (unknown) date) 100 mg/dL mg/dL unknown) Last Edit by Hira Montgomery MA on 07/07/22 (unknown) (no (unknown) (unknown) Urine Ketones (units ( unknown) date) Negative Last Edit unknown) by Hira Montgomery MA on 07/07/22 12:44 (unknown) (no (unknown) (unknown) Urine Leukocyte (units (unknown) date) Esterase 3+ 500 unknown) Tiara/uL Last Edit by Hira Montgomery MA on (unknown) (no (unknown) (unknown) Urine Nitrate (units ( unknown) date) Positive Last Edit unknown) by Hira Montgomery MA on 07/07/22 12:44 (unknown) (no (unknown) (unknown) Urine Protein (units ( unknown) date) Negative Last Edit unknown) by Hira Montgomery MA on 07/07/22 12:44 (unknown) (no (unknown) (unknown) Urine Specific (units (unknown) date) [place] 1.010 Last unknown) Edit by Hira Montgomery MA on 07/07/22 12 (unknown) (no (unknown) (unknown) Urine (units (unkno wn) date) Urobilinogen 2+ 4 unknown) mg/dL Last Edit by Hira Montgomery MA on 07/07/22 (unknown) (no (unknown) (unknown) Urine pH 5.5 Last (units (unknown) date) Edit by Hira unknown) ROSA Montgomery on 07/07/22 12:44 (unknown) (no (unknown) (unknown) 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 She is (units (un known) date) alert, oriented unknown) and comfortable (unknown) (no (unknown) (unknown) and frequency for (units (unknown) date) 3 days. Patient unknown) also has suprapubic pressure and back pain. (unknown) (no (unknown) (unknown) atorvastatin 10 (units (unknown) date) mg tablet 10 mg PO unknown) DAILY 07/07/22 [History Confirmed 07/07/22] (unknown) (no (unknown) (unknown) cephalexin 500 mg (units (unknown) date) PO QID 5 days 20 unknown) caps 0RF (unknown) (no (unknown) (unknown) cephalexin 500 mg (units (unknown) date) capsule 500 mg PO unknown) QID 5 days #20 caps 07/07/22 [Rx Confirmed (unknown) (no (unknown) (unknown) denies chance of (units (unknown) date) STDs. She is been unknown) trying to drink a lot of water to help with (unknown) (no (unknown) (unknown) have occurred. If (units (unknown) date) there are any unknown) questions, please contact the Medical Records (unknown) (no (unknown) (unknown) hematuria (units (unkn own) date) Qualified Code(s): unknown) N30.01 - Acute cystitis with hematuria (unknown) (no (unknown) (unknown) lisinopril 20 (units ( unknown) date) mg-hydrochlorothia unknown) zide 25 mg tablet 1 tab PO DAILY 07/07/22 (unknown) (no (unknown) (unknown) may occur. (units (unk nown) date) Occasional unknown) wrong-word or 'sound-alike' substitutions may have (unknown) (no (unknown) (unknown) occurred due to (units (unknown) date) the inherent unknown) limitations of voice recognition software. Please (unknown) (no (unknown) (unknown) phenazopyridine (units (unknown) date) (Pyridium) 200 mg unknown) PO TID 6 doses 6 tabs 0RF (unknown) (no (unknown) (unknown) phenazopyridine (units (unknown) date) 200 mg tablet unknown) (Pyridium) 200 mg PO TID 6 doses #6 tabs 07/07/22 (unknown) (no (unknown) (unknown) read the note (units ( unknown) date) carefully and unknown) recognize, using context, where these substitutions (unknown) (no (unknown) (unknown) simvastatin [From (units (unknown) date) ZOCOR] Adverse unknown) Reaction (Severe, Unverified 07/07/22 11:34) (unknown) (no (unknown) (unknown) software. 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 Follow-up with primary care as needed (unknown) (no (unknown) (unknown) symptoms. Patient (units (unknown) date) did take Pyridium unknown) that she had left over from about a year (unknown) (no (unknown) (unknown) that patient has (units (unknown) date) urinary tract unknown) infection with positive blood and leukocytes. We (unknown) (no (unknown) (unknown) will start (units (unk nown) date) antibiotics, and unknown) send urine off for culture. Rest, increase fluids. Result panel 5 (unknown) (no (unknown) (unknown) >100,000 cfu/ml (unkno wn) date) (unknown) (no (unknown) (unknown) GNBGram negative (units (unknown) date) bacilli unknown) (unknown) (no (unknown) (unknown) Identification (units (unknown) date) and Sensitivity to unknown) Follow Result panel 6 (unknown) (no (unknown) (unknown) >100,000 cfu/ml (unkno wn) date) (unknown) (no (unknown) (unknown) <=0.12 (units (unkno wn) date) unknown) (unknown) (no (unknown) (unknown) <=0.25 (units (unkno wn) date) unknown) (unknown) (no (unknown) (unknown) <=0.5 (units (unkno wn) date) unknown) (unknown) (no (unknown) (unknown) <=1 (units (unkno wn) date) unknown) (unknown) (no (unknown) (unknown) <=16 (units (unkno wn) date) unknown) (unknown) (no (unknown) (unknown) <=2 (units (unkno wn) date) unknown) (unknown) (no (unknown) (unknown) <=20 (units (unkno wn) date) unknown) (unknown) (no (unknown) (unknown) <=4 (units (unkno wn) date) unknown) (unknown) (no (unknown) (unknown) 4 (units (unkno wn) date) unknown) (unknown) (no (unknown) (unknown) ESCCOLEscherichia (units (unknown) date) coli unknown) (unknown) (no (unknown) (unknown) No Further Workup (units (unknown) date) unknown) Social History date description facility 2022-07-07 00:00 Never smoked tobacco ([facility] Vital Signs date measurement value units 2022-07-07 00:00 BMI 32.0 kg/m2 2022-07-07 00:00 BP_diastolic 72 mmHg 2022-07-07 00:00 BP_systolic 124 mmHg 2022-07-07 00:00 heart_rate 86 /min 2022-07-07 00:00 height_metric 157.48 cm 2022-07-07 00:00 height_standard 62 in 2022-07-07 00:00 o2_saturation 99 % 2022-07-07 00:00 respiration_rate 14 /min 2022-07-07 00:00 temperature_metric 36.56 C 2022-07-07 00:00 temperature_standard 97.8 F 2022-07-07 00:00 weight_metric 79.49 kg 2022-07-07 00:00 weight_standard 175.25 lb
[2022-08-08 22:51] LABS: BASOPHILS # (AUTO) 0.1 10^3/uL (0.0-0.1); BASOPHILS % (AUTO) 0.6 %; EOSINOPHILS # (AUTO) 0.2 10^3/uL (0.0-0.7); EOSINOPHILS % (AUTO) 2.7 %; HGB - HEMOGLOBIN 12.7 g/dL (12.0-16.0); LYMPHOCYTES # (AUTO) 3.1 10^3/uL (1.5-3.5); LYMPHOCYTES % (AUTO) 34.5 %; MEAN CORPUSCULAR HEMOGLOBIN 29.3 pg (27.0-31.0); MEAN CORPUSCULAR HGB CONC 31.8 g/dL (32.0-36.0); MEAN CORPUSCULAR VOLUME 92.2 fL (81.0-99.0); MEAN PLATELET VOLUME 9.3 fL (7.9-10.8); MONOCYTES # (AUTO) 0.8 10^3/uL (0.0-1.0); MONOCYTES % (AUTO) 9.1 %; NEUTROPHILS # (AUTO) 4.8 10^3/uL (1.5-6.6); NEUTROPHILS % (AUTO) 52.9 %; PLT - PLATELET COUNT 390 10^3/uL (130-450); RED BLOOD COUNT 4.34 10^6/uL (4.20-5.40); RED CELL DISTRIBUTION WIDTH 13.3 % (12.0-15.0); WHITE BLOOD COUNT 9.1 x10^3/uL (4.8-10.8)
--- NOTE | 2022-08-08 22:51 | ED Physician Documentation ---
PD HPI CHEST PAIN - Stated complaint Stated Complaint: LT ARM PX, HIGH BP - Chief complaint Chief Complaint: General - History obtained from History obtained from: Patient, Family - History of Present Illness Timing - onset: Enter time (1999), Today Timing - onset during: Rest Timing - duration: Minutes (20) Timing - details: Abrupt onset, Now resolved Pain level max: 10 Pain level now: 0 Quality: Tightness, Aching, Sharp Location: Left shoulder/arm Radiation: Left upper extremity Improved by: Rest Associated symptoms: Nausea, Feeling faint / dizzy. No: Shortness of air, Diaphoresis, Vomiting, General Weakness, Palpitations, Cough Similar symptoms before: Has not had sx before Recently seen: Not recently seen - Additional information Additional information: Previously well Catherine Clemons is a 57-year-old female with a history of hypertension who went to go to bed this evening at about 8 PM and had the onset of some pain in her left axilla that radiated down her left arm she states it was very hard pain and she did not developed diaphoresis with this but she did become slightly nauseous and had some mild dizziness. She has a prior history of dizziness and has had a prior echocardiogram which was normal. 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 She does not have prior issue with OR. The patient does indicate that she is under a lot of stress at work. She does take her medications daily and states that she has been compliant with her blood pressure medicine. Review of Systems Constitutional: denies: Fever Eyes: denies: Decreased vision Ears: denies: Ear pain Nose: denies: Rhinorrhea / runny nose, Congestion Throat: denies: Sore throat Cardiac: denies: Chest pain / pressure, Palpitations Respiratory: denies: Dyspnea, Cough GI: reports: Nausea. denies: Abdominal Pain, Vomiting, Constipation, Diarrhea : denies: Dysuria, Frequency Skin: denies: Rash Musculoskeletal: reports: Extremity pain. 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 : None HEENT: None Psych: None Musculoskeletal: None Derm: None - Past Surgical History Past Surgical History: Yes /OBSTETRIC ANAESTHETIST: section, Hysterectomy - Present Medications Home Medications: Ambulatory Orders Medication Instructions Recorded Confirmed Atorvastatin Calcium 40 mg PO DAILY 12/05/19 05/30/20 Lisinopril [Zestril] 20 mg PO DAILY 12/05/19 05/30/20 hydroCHLOROthiazide 12.5 mg PO DAILY 12/05/19 05/30/20 [Hydrochlorothiazide] levoFLOXacin [Levaquin] 250 mg PO DAILY #3 tablet 05/30/20 Mupirocin 2% Oint [Bactroban 2% 1 applic TOP BID #2 tub 04/24/21 Oint] cephALEXin [Keflex] 500 mg PO Q6H #28 cap 04/24/21 Benzonatate [Tessalon] 200 mg PO TID PRN #30 cap 11/25/21 Cetirizine HCl/Pseudoephedrine 1 each PO BID PRN #30 ea 11/25/21 [Zyrtec-D Tablet] - Allergies Allergies/Adverse Reactions: Allergies Allergy/AdvReac Type Severity Reaction Status Date / Time simvastatin [From Zocor] AdvReac Unknown Verified 08/08/22 22:23 - Social History Does the pt smoke?: No Smoking Status: Never smoker Does the pt drink ETOH?: No Does the pt have substance abuse?: No - Immunizations Immunizations are current?: Yes - POLST Patient has POLST: No PD ED PE NORMAL - Vitals Vital signs reviewed: Yes (Hypertensive) - General General: Alert and oriented X 3, No acute distress, Well developed/nourished - HEENT HEENT: Atraumatic, PERRL, EOMI - Neck Neck: Supple, no meningeal sign, No bony TTP, No adenopathy, No JVD, No bruit - Cardiac Cardiac: RRR, Other (1/6 holosystolic murmer at LSB) - Respiratory Respiratory: No respiratory distress, Clear bilaterally - Abdomen Abdomen: Soft, Non tender - Back Back: No CVA TTP, No spinal TTP - Derm Derm: Normal color, Warm and dry, No rash - Extremities Extremities: No deformity, No edema - Neuro Neuro: Alert and oriented X 3, lei seller 2-12 intact, No motor deficit, No sensory deficit, Normal speech Eye Opening: Spontaneous Motor: Obeys Commands Verbal: Oriented GCS Score: 15 - Psych Psych: Normal mood, Normal affect Results - Vitals Vitals: Vital Signs - 24 hr 08/08/22 08/08/22 08/08/22 22:05 22:49 23:14 Temperature 36.5 C Heart Rate 78 77 75 Respiratory 16 19 14 Rate Blood Pressure 152/62 H 118/80 123/49 L O2 Saturation 97 98 95 08/09/22 00:50 Temperature Heart Rate 68 Respiratory 12 Rate Blood Pressure 128/50 L O2 Saturation 96 Oxygen O2 Source Room air - EKG (time done) 2210 EKG releavant findings:: EKG personally interpreted by author of this note. Relevant findings are: Rate: Rate (enter#) (73) Rhythm: NSR Ischemia: Non specific changes, Other (minimal BEENA V1/V2) Compare to prior EKG: Old EKG unavailable Computer interpretation: Agree with computer - Labs Labs: Laboratory Tests 08/08/22 08/08/22 08/08/22 22:44 22:44 22:44 WBC 9.1 RBC 4.34 Hgb 12.7 Hct 40.0 MCV 92.2 MCH 29.3 MCHC 31.8 L RDW 13.3 Plt Count 390 MPV 9.3 Neut # (Auto) 4.8 Lymph # (Auto) 3.1 Tripp # (Auto) 0.8 Eos # (Auto) 0.2 Baso # (Auto) 0.1 Absolute Nucleated RBC 0.00 Nucleated RBC % 0.0 Sodium 138 Potassium 3.1 L Chloride 102 Carbon Dioxide 29 Anion Gap 7.0 BUN 22 H Creatinine 0.6 Estimated GFR (MDRD) 103 Glucose 120 H Calcium 9.4 Total Bilirubin 0.6 AST 22 ALT 37 Alkaline Phosphatase 65 Troponin I High Sens 14.8 Total Protein 7.6 Albumin 4.3 Globulin 3.3 Albumin/Globulin Ratio 1.3 Lipase 41 08/09/22 00:56 WBC RBC Hgb Hct MCV MCH MCHC RDW Plt Count MPV Neut # (Auto) Lymph # (Auto) Tripp # (Auto) Eos # (Auto) Baso # (Auto) Absolute Nucleated RBC Nucleated RBC % Sodium Potassium Chloride Carbon Dioxide Anion Gap BUN Creatinine Estimated GFR (MDRD) Glucose Calcium Total Bilirubin AST ALT Alkaline Phosphatase Troponin I High Sens 34.1 H* Total Protein Albumin Globulin Albumin/Globulin Ratio Lipase - Rads (name of study) chest Relevant Findings:: Prelim report reviewed (Impression: 1. No acute cardiopulmonary disease.), EMP independent interpretation of test Procedures - IVC sono (time) 0150 Bedside IVC sono: IVC measures (cm) (0.93), IVC collapsed c insp (cm) (complete), Dehydration (est 2 liter deficit) PD Medical Decision Making - ED course Complexity details: reviewed old records, reviewed results, re-evaluated patient, considered differential, d/w patient, d/w family Reviewed Lab Results: We reviewed a chest x-ray electrocardiogram complete blood count and chemistries with electrolytes kidney and liver function as well as sensitive troponin. Our initial evaluation was negative. A second troponin shed light on the underlying condition. We then used POCUS to evaluate the hydration status and found the patient to be significantly dehydrated. ED course: 57-year-old female presents to the emergency department pain-free after an episode of left arm pain lasting 20 to 30 minutes. Her electrocardiogram showed nonspecific ST elevation isolated to V1 and 2 of less than a millivolt. There were lateral ST changes as well that were nonspecific.The patient was not having pain in her chest at the time of the electrocardiogram.We evaluated the patient for coronary syndrome her initial troponin was negative. A second troponin was elevated mildly. I reevaluated the patient at that time interrogated the IVC with POCUS and found that she was significantly dehydrated. Estimated to be 2 liter deficit. We are administering intravenous saline. She has taken an aspirin prior to arrival. We are looking for a bed for this patient for NSTEMI. She has a prior visit to cardiology at [facility] and has had a normal prior echocardiogram. Beds are not available at [facility]. I was able to contact Dr. Lester at the [facility]. 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 He recommends aspirin only and does not think the patient needs heparin currently. I have spoken to Dr. Alvares who is the hospitalist at [facility] in [place] and she will accept the patient in transfer. Departure - Departure Disposition: 02 Transfer Acute Care Hosp Clinical Impression: NSTEMI (non-ST elevated myocardial infarction), Dehydration, Hypokalemia Condition: Stable
[2022-08-08 23:05] LABS: ALBUMIN 4.3 g/dL (3.2-5.5); ALBUMIN/GLOBULIN RATIO 1.3 (1.0-2.2); BILIRUBIN,TOTAL 0.6 mg/dL (0.2-1.0); CALCIUM 9.4 mg/dL (8.5-10.3); CREATININE 0.6 mg/dL (0.4-1.0); POTASSIUM 3.1 mmol/L (3.5-5.0); TOTAL PROTEIN 7.6 g/dL (6.7-8.2)
[2022-08-09] MEDS ORDERED: SODIUM CHLORIDE 0.9% 1,000 ML IV STA (01:56)
[2022-08-09] MEDS ORDERED: POTASSIUM CHLORIDE 20 MEQ TABLET PO STA (02:47)
[2022-08-09] MEDS ORDERED: POTASSIUM CHLOR 10 MEQ/100 ML 10 MEQ/100 ML BAG IV ONE (02:47)
--- NOTE | 2022-08-09 07:08 | XRAY Report ---
PROCEDURE: Chest 1 View X-Ray INDICATIONS: Chest pain TECHNIQUE: One view of the chest was acquired. COMPARISON: 11/25/2021. FINDINGS: Surgical changes and devices: None. Lungs and pleura: No pleural effusions or pneumothorax. Lungs are clear. Mediastinum: Mediastinal contours appear normal. Heart size is normal. Bones and chest wall: No suspicious bony lesions. Overlying soft tissues appear unremarkable. IMPRESSION: 1. No acute cardiopulmonary disease. Reviewed by: Erickson Cornell MD on 08/08/2022 11:41 PM PDT Approved by: Erickson Cornell MD on 08/08/2022 11:41 PM PDT Station ID: [id number]
[2022-08-09 08:59] LABS: INFLUENZA A- RESP PCR PANEL NOT DETECTED; INFLUENZA B - RESP PCR PANEL NOT DETECTED; RSV- RESP PCR PANEL NOT DETECTED; SARS-CoV-2 -RESP PCR PANEL NOT DETECTED
[2022-08-09 10:09] VITALS: BP 156/67
== END 2022-08-09 11:27 | disposition short-term general hospital (02) ==
LOC: ED 21:50
DX: I21.4 Non-ST elevation (NSTEMI) myocardial infarction (principal); E86.0 Dehydration; E87.6 Hypokalemia; I10 Essential (primary) hypertension; E78.00 Pure hypercholesterolemia, unspecified; Z79.899 Other long term (current) drug therapy; Z20.822 Contact with and (suspected) exposure to COVID-19
CPT/HCPCS: 36415; 71045; 80053; 83690; 84484; 85025; 87637; 93005; 96361; 96365; 99284; 99285; A9270

== ENCOUNTER 2022-09-05 10:22 | Outpatient (CLI) | payer OTHER ==
--- NOTE | 2022-09-05 15:08 | XRAY Report ---
PROCEDURE: Chest 2 View X-Ray INDICATIONS: DYSPNEA TECHNIQUE: 2 views of the chest were acquired. COMPARISON: Chest x-ray 08/08/2022 FINDINGS: Surgical changes and devices: Sternal wires. Lungs and pleura: There is been interval development of a mild left pleural effusion. Mediastinum: Mediastinal contours appear normal. Heart size is normal. Bones and chest wall: No suspicious bony lesions. Overlying soft tissues appear unremarkable. IMPRESSION: Interval left pleural effusion. Underlying areas of pneumonia and/or atelectasis cannot be excluded. Recommend interval follow-up to document resolution and exclude presence of underlying mass. Reviewed by: Corrina Wu MD on 09/05/2022 3:06 PM PDT Approved by: Corrina Wu MD on 09/05/2022 3:06 PM PDT Station ID: [id number]
== END 2022-09-05 10:23 | disposition home or self-care (01) ==
LOC: DI 10:22
PROVIDERS: ATTEND Physician Assistant
DX: I25.810 Atherosclerosis of coronary artery bypass graft(s) without angina pectoris (principal); J90 Pleural effusion, not elsewhere classified

== ENCOUNTER 2022-09-11 12:44 | Outpatient (CLI) | payer OTHER ==
[2022-09-11 17:48] LABS: ALBUMIN 4.2 g/dL (3.2-5.5); ALBUMIN/GLOBULIN RATIO 1.2 (1.0-2.2); BILIRUBIN,TOTAL 0.8 mg/dL (0.2-1.0); CALCIUM 9.3 mg/dL (8.5-10.3); CREATININE 0.6 mg/dL (0.4-1.0); MAGNESIUM 2.1 mg/dL (1.7-2.8); POTASSIUM 3.9 mmol/L (3.5-5.0); TOTAL PROTEIN 7.7 g/dL (6.7-8.2)
[2022-09-11 17:51] LABS: BASOPHILS # (AUTO) 0.1 10^3/uL (0.0-0.1); BASOPHILS % (AUTO) 1.1 %; EOSINOPHILS # (AUTO) 0.2 10^3/uL (0.0-0.7); EOSINOPHILS % (AUTO) 3.5 %; HCT - HEMATOCRIT 39.8 % (37.0-47.0); HGB - HEMOGLOBIN 11.6 g/dL (12.0-16.0); LYMPHOCYTES % (AUTO) 30.7 %; MEAN CORPUSCULAR HEMOGLOBIN 27.8 pg (27.0-31.0); MEAN CORPUSCULAR HGB CONC 29.1 g/dL (32.0-36.0); MEAN CORPUSCULAR VOLUME 95.2 fL (81.0-99.0); MEAN PLATELET VOLUME 9.1 fL (7.9-10.8); MONOCYTES # (AUTO) 0.6 10^3/uL (0.0-1.0); MONOCYTES % (AUTO) 9.5 %; NEUTROPHILS # (AUTO) 3.6 10^3/uL (1.5-6.6); PLT - PLATELET COUNT 505 10^3/uL (130-450); RED BLOOD COUNT 4.18 10^6/uL (4.20-5.40); WHITE BLOOD COUNT 6.6 x10^3/uL (4.8-10.8)
== END 2022-09-11 12:45 | disposition home or self-care (01) ==
LOC: LAB.N 12:44
PROVIDERS: ATTEND Physician Assistant
DX: R60.0 Localized edema (principal); I25.810 Atherosclerosis of coronary artery bypass graft(s) without angina pectoris; R06.09 Other forms of dyspnea
CPT/HCPCS: 36415; 80053; 83735; 85025

== ENCOUNTER 2022-10-22 14:00 | Outpatient (CLI) | payer OTHER ==
--- NOTE | 2022-10-22 15:30 | SLEEP CARE CONSULTATION ---
Information from patient questionnaire entered by Jossy Hanley. I have reviewed and concur with the information entered by Jossy Hanley. This document represents the service I personally performed and the decisions made by me, Kourtney Wellington ARNP. History of Present Illness Service Date and Time: 10/22/2022 1400 Reason for Visit: New patient Chief Complaint: reports: Unrefreshed sleep, Snoring, Fatigue Date of Onset: 5+YRS Usual bedtime: 830-9PM Time it takes to fall asleep: 15MINS OR LESS Snores at night: Yes Observed to quit breathing while asleep: No Sleeps alone due to snoring: No Number of times waking at night: 2-3 Reasons for waking at night: reports: Other (UNKNOWN). denies: Choking, Snoring, Gasping for air Toss, Turn, or Twitch while sleeping: No Recalls having dreams: Yes Usually gets out of bed at: 530-6AM WEEKDAYS 730AM WEEKENDS Feels refreshed in the morning: No Morning headache: No Sleepy or fatigued during the day: Yes Ever fallen asleep while driving: No Takes day naps: No Dreams during day naps: No Prior sleep studies: No Additional HPI information: I had the pleasure of seeing KAPIL GAN today regarding the possibility of her having a sleep disorder. Her current complaints are unrefreshed sleep, snoring and fatigue. She has been being tired all the time and fatigued. She can doze off in long meetings a work. She feels this has been going on for a five years or more. She feels it is getting worse this last year. She does not wake up feeling refreshed in the morning. She recently had a heart attack and ended up with a triple bypass surgery. She states she is healing well from surgery but still feels the daytime fatigue is still high. She does have a history of hypertension and high cholesterol. She states she cannot sleep on her back because she feels her throat closes. She had to sleep in a recliner for some time after surgery because they told her not to sleep on her side, only her back post surgery. She denies waking up gasping or choking in her sleep unless she has had a cold or sinus irritation with post nasal drip. 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 Patient is and lives in [place]. Have you smoked in the past 12 months: No Alcohol use: Yes Alcohol amount and frequency: SPECIAL OCCASIONS 1 GLASS Caffeine use: Yes Caffeine amount and frequency: 1PER DAY Family History Family history of sleep disordered breathing: No Allergies and Home Medications Known drug allergies: Yes (simvastatin) Drug allergies reviewed: Yes Home medication list reviewed: Yes Allergy and home medication list: Allergies simvastatin [From Zocor] Adverse Reaction (Verified 10/21/22 16:48) Unknown Medications: Amlodipine Metoprolol Aspirin rosuvastatin 40 mg daily Review of Systems Weight gain over past 5 years: 4 Weight loss over past 5 years: 4 Cardiovascular: reports: high blood pressure Respiratory: denies: shortness of breath Gastrointestinal: denies: heartburn Neurological: denies: headaches Psychiatric: denies: anxiety, depression Ear/Nose/Throat: denies: tonsillectomy Endocrine: denies: thyroid disease Musculoskeletal: reports: joint pain, muscle pain or cramping Physical Exam Vital signs obtained and entered by: JOSSY Mcgee MA Blood Pressure: 140/80 (LEFT [facility]) Cuff size: regular Heart Rate: 72 O2 Saturation: 99 Height: 5 ft 2 in Weight: 177 lb 6.4 oz Body Mass Index: 32.4 BMI Classification: Obese Neck circumference: 16 Nostrils: patent to airflow Mouth and throat: narrow oropharynx Soft palate: long Hard palate: normal Uvula: normal Uvula visualization: 25% Mallampati Class III Tongue: enlarged in size with teeth craven on lateral edges Tonsils: small Neck: normal w/o lymphadenopathy or thyromegaly Heart: regular rate and rhythm Lungs: clear bilaterally Impression and Plan 1. Suspected Obstructive Sleep Apnea-Hypopnea Syndrome, as suggested by a history of loud and irregular snoring, unrefreshed sleep, cognitive impairment, and excessive daytime sleepiness. Narrow oropharynx and obesity are common predisposing factors for obstructive sleep apnea-hypopnea syndrome. I recommend proceeding to polysomnography to confirm the diagnosis and to assess severity. If the patient has significant sleep disordered breathing, a manual CPAP titration study will also be performed to find the optimal treatment pressure. I informed the patient of what the sleep studies involve and after some discussion, obtained agreement to proceed. The pathophysiology of obstructive sleep apnea-hypopnea syndrome was discussed with the patient and health risks of cardiovascular and cerebrovascular disease if not treated. Risks of drowsy driving discussed in detail and patient advised to avoid long distance driving and to cloth covered helmet puller at the first sign of drowsiness. Patient agreed to plan. * Schedule polysomnography +- manual CPAP titration study and return in 1-2 weeks after the study to discuss result and initiate therapy. * Avoid long distance driving or driving when feeling sleepy. * Avoid alcohol, sedative and muscle relaxant around bedtime. * Attempt to lose weight. * Review instructions provided by trained office staff on how to prepare for the sleep study. * Return for follow-up after sleep study completed. Counseling Topics: Weight loss health impact Visit Type: In Office Time Spent with Patient (minutes): 31 Provider Statement: I spent 100% of the Face to Face Visit with the patient with greater than 50% spent counseling the patient and coordination of care.
[2022-10-22 15:34] VITALS: BP 140/80
== END 2022-10-22 14:01 | disposition home or self-care (01) ==
LOC: SC 14:00
PROVIDERS: ATTEND Nurse Practitioner Family
DX: R06.83 Snoring (principal); G47.8 Other sleep disorders; R41.89 Other symptoms and signs involving cognitive functions and awareness; G47.10 Hypersomnia, unspecified; E66.9 Obesity, unspecified; Z68.32 Body mass index [BMI] 32.0-32.9, adult; R53.83 Other fatigue; Z86.79 Personal history of other diseases of the circulatory system
CPT/HCPCS: 99203; 99212

== ENCOUNTER 2022-10-25 08:00 | Outpatient (CLI) | payer OTHER ==
--- NOTE | 2022-10-25 10:38 | XRAY Report ---
PROCEDURE: Chest 2 View X-Ray INDICATIONS: DYSPNEA TECHNIQUE: 2 views of the chest were acquired. COMPARISON: None. FINDINGS: Surgical changes and devices: Sternotomy wires and surgical clips. Lungs and pleura: Mild peribronchial thickening and opacity in the left suprahilar region. Previous left pleural effusion has decreased. Mediastinum: Heart size at the upper limit of normal. Bones and chest wall: No suspicious bony lesions. Overlying soft tissues appear unremarkable. IMPRESSION: Decreased left pleural effusion. Persistent mild opacity and thickening at the left suprahilar region . Depending on clinical context, continued follow-up imaging is reasonable. Reviewed by: Kota Perez MD on 10/25/2022 10:36 AM PDT Approved by: Kota Perez MD on 10/25/2022 10:36 AM PDT Station ID: [id number]
== END 2022-10-25 08:15 | disposition home or self-care (01) ==
LOC: DI.N 08:00
PROVIDERS: ATTEND Family Medicine
DX: R59.9 Enlarged lymph nodes, unspecified (principal); J90 Pleural effusion, not elsewhere classified; I25.810 Atherosclerosis of coronary artery bypass graft(s) without angina pectoris
CPT/HCPCS: 36415; 84484; 85025

== ENCOUNTER 2022-10-25 08:15 | Outpatient (CLI) | payer OTHER ==
[2022-10-25 11:51] LABS: BASOPHILS # (AUTO) 0.1 10^3/uL (0.0-0.1); BASOPHILS % (AUTO) 0.5 %; EOSINOPHILS # (AUTO) 0.1 10^3/uL (0.0-0.7); EOSINOPHILS % (AUTO) 0.9 %; HCT - HEMATOCRIT 38.4 % (37.0-47.0); HGB - HEMOGLOBIN 11.5 g/dL (12.0-16.0); LYMPHOCYTES % (AUTO) 15.2 %; MEAN CORPUSCULAR HEMOGLOBIN 25.8 pg (27.0-31.0); MEAN CORPUSCULAR HGB CONC 29.9 g/dL (32.0-36.0); MEAN CORPUSCULAR VOLUME 86.1 fL (81.0-99.0); MEAN PLATELET VOLUME 10.2 fL (7.9-10.8); MONOCYTES # (AUTO) 1.1 10^3/uL (0.0-1.0); MONOCYTES % (AUTO) 8.7 %; NEUTROPHILS # (AUTO) 9.6 10^3/uL (1.5-6.6); NEUTROPHILS % (AUTO) 74.5 %; PLT - PLATELET COUNT 364 10^3/uL (130-450); RED BLOOD COUNT 4.46 10^6/uL (4.20-5.40); RED CELL DISTRIBUTION WIDTH 14.2 % (12.0-15.0); WHITE BLOOD COUNT 12.9 x10^3/uL (4.8-10.8)
== END 2022-10-25 08:30 | disposition home or self-care (01) ==
LOC: LAB.N 08:15
PROVIDERS: ATTEND Family Medicine
DX: R06.00 Dyspnea, unspecified (principal); I25.810 Atherosclerosis of coronary artery bypass graft(s) without angina pectoris
CPT/HCPCS: 36415; 84484; 85025

== ENCOUNTER 2022-11-22 20:47 | Outpatient (CLI) | payer OTHER | END 2022-11-22 20:48 | disposition home or self-care (01) | LOC: SC 20:47 | PROVIDERS: ATTEND Nurse Practitioner Family | DX: G47.33 Obstructive sleep apnea (adult) (pediatric) (principal); G47.61 Periodic limb movement disorder; E66.9 Obesity, unspecified; Z68.32 Body mass index [BMI] 32.0-32.9, adult | CPT/HCPCS: 95810 ==

== ENCOUNTER 2022-11-29 14:17 | Outpatient (CLI) | payer OTHER ==
--- NOTE | 2022-11-29 14:03 | SLEEP CARE CONSULTATION ---
Information from patient questionnaire entered by Roberta Hanley. I have reviewed and concur with the information entered by Roberta Hanley. This document represents the service I personally performed and the decisions made by , Kourtney Wellington ARNP. History of Present Illness Service Date and Time: 11/29/2022 1340 Initial [place] Sleepiness Scale score: 11 (10/22/22) Current [place] Sleepiness Scale score: 21 (11/29/22) Additional HPI information: KAPIL GAN returns via video telehealth visit for follow up and results of the recently performed polysomnography. I explained the pathophysiology behind obstructive sleep apnea. We then spent quite a bit of time discussing different treatment options. For mild obstructive sleep apnea, surgery and oral appliance are alternatives to nasal CPAP therapy but in moderate or severe cases, nasal CPAP is the most effective and reliable treatment. Because apnea is primarily in supine position, then positional management therapy could be effective. Methods discussed such as positioning with pillows, using a T-shirt with tennis balls in the back, or commercial products that have a pillow format on back to prevent supine sleep. I reviewed the impact of weight changes on sleep apnea and strongly recommended losing weight. After some discussion, the patient opted to go with the nasal CPAP therapy. Nasal autoCPAP set at 4-15 cmH20 will be ordered with rationale explained. A manual titration study will be ordered if unable to find optimal pressure with office adjustments. I explained how CPAP machine works and what to expect when using the machine. Using CPAP every night in order to get used to it was emphasized. Patient advised to put CPAP mask on before getting into bed so as not to fall asleep without CPAP. To assist acclimation to CPAP use, it could also be used for a short time during day while reading or watching TV. The patient was instructed to call the CPAP supplier to discuss any mechanical problem that may occur. If the mask given is uncomfortable or is difficult to keep on through the night even with adjustment, contact the CPAP supplier as many will replace with another mask style if notified before 30 days. If snoring or perceives is not getting enough air or too much air from the machine, notify this office. Patient counseled not drink alcohol less than 4 hours before bedtime as it can increase snoring and apnea. Patient was cautioned about risks of drowsy driving until sleepiness symptoms resolve. Patient denies drowsy driving. Sleep Study - Results Type of Sleep Study: Polysomnography (COMPLETED 11/22/22) Prior sleep studies: No Polysomnography/Home Sleep Study results: IMPRESSION: The quality of the study is good. The patient had normal sleep efficiency. The sleep architecture was abnormal for sleep fragmentation and reduced amount of time spent in slow wave sleep (N3). Respiratory monitoring showed moderate obstructive sleep apnea-hypopnea (AHI = 15.7) associated with frequent arousals, oxyhemoglobin desaturation and moderate hypoxia (lisha oxygen saturation of 75%) . The respiratory events occurred mainly during REM sleep. The patient only slept supine during this study (supine AHI = 0.0; non-supine = 15.72). Snore was light to loud in intensity. There was severe periodic leg movement of sleep not contributing to the sleep fragmentation. Cardiac rhythm was normal sinus rhythm without significant arrhythmia. No abnormal behavior (parasomnia) observed during the night. Allergies and Home Medications Known drug allergies: Yes (simvastatin) Drug allergies reviewed: Yes Home medication list reviewed: Yes (no changes) Allergy and home medication list: Allergies simvastatin [From Zocor] Adverse Reaction (Verified 11/29/22 10:51) Unknown Review of Systems Review of systems same as previous: Yes (no changes) Physical Exam Vital signs obtained and entered by: ROBERTA Mcgee MA Blood Pressure: 118/68 (PER PT) Height: 5 ft 2.5 in (PER PT) Weight: 175 lb (PER PT) Body Mass Index: 31.5 BMI Classification: Obese Impression and Plan 1. Obstructive Sleep Apnea-Hypopnea Syndrome, moderate, with lowest oxygen saturation of 75%. Obviously this is the cause of the patients symptoms of unrefreshed sleep, and excessive daytime sleepiness. Positive pressure therapy could benefit hypertension and CHD. As mentioned above, the patient will be started on nasal autoCPAP therapy with pressure set at 4-15 cmH2O. A manual titration study will be completed if unable to find optimal treatment pressure with office adjustments. Compliance guidelines also reviewed. A copy of compliance guidelines will be given for reference at check out. 2. Hypoxemia, moderate, with a lisha oxygen saturation of 75% and 23.5 minutes spent under 90%. Her baseline oxygen saturation was normal with an average oxygen saturation of 93%. 3. Periodic limb movement, severe, that did not fragment patients sleep. Periodic limb movement of sleep (PLMS) is characterized by episodes of repetitive limb movements that occur during sleep and usually involve the lower limbs. The etiology is unknown. Caffeine can aggravate PLMS and should be avoided. Sleep hygiene methods can also improve sleep as well as lifestyle changes such as regular exercise. Patient was advised that no treatment is needed at this time. If symptoms increase, then further evaluation is indicated. * Nasal auto CPAP therapy, pressure at 4-15 cm H2O. * Attempt to lose weight. * Avoid alcohol consumption near bedtime. * Avoid supine sleep until using CPAP. * The patient is again cautioned about driving until sleepiness completely resolves. * Return one month after CPAP obtained. I will assess response to therapy and compliance at that time. Counseling Topics: Weight loss health impact Visit Type: Telehealth Video Video Type: Doxdinorahity Patient Location: Work Location of Provider: Office Patient agrees and consents to this telehealth visit type: Yes Patient agrees to have their insurance billed: Yes Time Spent with Patient (minutes): 18 Provider Statement: I spent 100% of the Telehealth Video Call with the patient with greater than 50% spent counseling the patient and coordination of care.
[2022-11-29 14:06] VITALS: BP 118/68
== END 2022-11-29 14:18 | disposition home or self-care (01) ==
LOC: SC 14:17
PROVIDERS: ATTEND Nurse Practitioner Family
DX: G47.33 Obstructive sleep apnea (adult) (pediatric) (principal); R09.02 Hypoxemia; G47.61 Periodic limb movement disorder; E66.9 Obesity, unspecified; Z68.31 Body mass index [BMI] 31.0-31.9, adult

== ENCOUNTER 2023-01-23 08:00 | Outpatient (CLI) | payer OTHER ==
[2023-01-23 12:56] LABS: CHOL/HDL RATIO 3.5 (<4.4); CHOLESTEROL 166 mg/dL; HDL CHOLESTEROL 47 mg/dL; LDL CHOLESTEROL,CALCULATED 80 mg/dL; LDL/HDL RATIO 1.7 (<4.4); TRIGLYCERIDES 196 mg/dL (48-352); VLDL CHOLESTEROL 39 mg/dL
== END 2023-01-23 08:01 | disposition home or self-care (01) ==
LOC: LAB.N 08:00
PROVIDERS: ATTEND Nurse Practitioner Acute Care
DX: E78.5 Hyperlipidemia, unspecified (principal)
CPT/HCPCS: 36415; 80061; 83721

== ENCOUNTER 2023-03-20 13:09 | Emergency (ER) | payer OTHER ==
--- NOTE | 2023-03-20 13:27 | ED Physician Documentation ---
PD HPI LOWER EXT INJURY - Stated complaint Stated Complaint: GROIN PX - Chief complaint Chief Complaint: Ext Problem - History obtained from History obtained from: Patient - Additional information Additional information: 57-year-old woman with history of coronary bypass has had several days worth of pain in the right groin which is worse with rotation of the hip and lifting of the leg. There was no injury. No fevers or chills. No abdominal pain. No leg swelling. No recent travel. PD PAST MEDICAL HISTORY - Past Medical History Past Medical History: Yes Cardiovascular: Hypertension, High cholesterol, Coronary artery disease Respiratory: None Neuro: None Endocrine/Autoimmune: None GI: None DIETIST: None : None HEENT: None Psych: None Musculoskeletal: None Derm: None - Past Surgical History Past Surgical History: Yes /DIETIST: section, Hysterectomy Cardiovascular: CABG - Present Medications Home Medications: Ambulatory Orders Medication Instructions Recorded Confirmed Amlodipine Besylate [Norvasc] 2.5 mg PO DAILY 10/22/22 03/20/23 Aspirin [Vazalore] 81 mg PO DAILY 10/22/22 03/20/23 Metoprolol Succinate [Toprol Xl] 25 mg PO BID 10/22/22 03/20/23 Rosuvastatin Calcium [Crestor] 40 mg PO HS 03/20/23 03/20/23 - Allergies Allergies/Adverse Reactions: Allergies Allergy/AdvReac Type Severity Reaction Status Date / Time simvastatin [From Zocor] AdvReac Unknown Verified 03/20/23 13:18 - Social History Does the pt smoke?: No Smoking Status: Never smoker Does the pt drink ETOH?: No Does the pt have substance abuse?: No - Immunizations Immunizations are current?: Yes - POLST Patient has POLST: No PD ED PE NORMAL - Vitals Vital signs reviewed: Yes - General General: Alert and oriented X 3, No acute distress - Abdomen Abdomen: Soft, Non tender - Extremities Extremities: Other (Exam done with Toshia ALARCON present and chaperoning: Mild tenderness in the right inguinal area without skin changes or swelling. Mild pain with internal/external rotation of the right hip. No leg swelling.) - Neuro Neuro: Alert and oriented X 3, Normal speech - Psych Psych: Normal mood, Normal affect Results - Vitals Vitals: Vital Signs - 24 hr 03/20/23 03/20/23 13:16 13:51 Temperature 36.6 C Heart Rate 67 Respiratory 15 19 Rate Blood Pressure 156/66 H O2 Saturation 98 Oxygen O2 Source Room air - Rads (name of study) RLE duplex Relevant Findings:: Prelim report reviewed (neg for DVT per Elina CUNNINGHAM) PD Medical Decision Making - ED course ED course: Her specific worry is for DVT, clinically unlikely but out of an abundance of caution we will check ultrasound. Departure - Departure Disposition: 01 Home, Self Care Clinical Impression: Leg pain, right Condition: Good Record reviewed to determine appropriate education?: Yes Instructions: ED Strain Muscle Ext Comments: No blood clot in the leg. It seems like the pain is probably muscular given its association with movement in the location. Call your doctor to arrange a follow-up appointment, make the next available appointment. In the interim, return anytime if worse or if new symptoms develop. You can take Tylenol and/or ibuprofen per package instructions for pain. Forms: PCP List
--- NOTE | 2023-03-20 15:10 | Ultrasound Report ---
PROCEDURE: Duplex Ext Veins Right INDICATIONS: rle pain TECHNIQUE: Real-time imaging, as well as color and pulse Doppler interrogation, were performed of the lower extr emity deep veins from the inguinal ligament to the popliteal fossa. Attempted visualization of the ca lf veins was performed. COMPARISON: None. FINDINGS: The deep veins are normally compressible, and free of intraluminal thrombus. Color and pu lse Doppler demonstrate normal phasic intraluminal flow. There is normal augmentation response to di stal compression maneuver. The upper thigh greater saphenous vein is patent. There is reflux at the saphenofemoral junction. IMPRESSION: No deep venous thrombosis of the right lower extremity. Greater saphenous vein reflux at the saphenofemoral junction. Reviewed by: Vineet Barerto MD on 03/20/2023 3:09 PM PST Approved by: Vineet Barreto MD on 03/20/2023 3:09 PM [facility] Station ID: [id number]
[2023-03-20 15:24] VITALS: BP 145/73; O2SAT 100
== END 2023-03-20 15:26 | disposition home or self-care (01) ==
LOC: ED 13:09
DX: M79.604 Pain in right leg (principal); I10 Essential (primary) hypertension
CPT/HCPCS: 99283; 99284

== ENCOUNTER 2023-08-21 08:00 | Outpatient (CLI) | payer OTHER ==
--- NOTE | 2023-08-21 15:01 | XRAY Report ---
PROCEDURE: Knee 4 View RT INDICATIONS: RIGHT KNEE PAIN TECHNIQUE: 4 views of the right knee and one view of the left knee acquired. COMPARISON: None. FINDINGS: Bones: No acute fractures or dislocations. No suspicious bony lesions. Moderate joint space narro wing is seen at the medial femorotibial compartments bilaterally. There is mild patellofemoral compar tment joint space narrowing on the right. Small tricompartmental marginal osteophytes. Small right alonso prapatellar enthesophytes. Soft tissues: No knee joint effusion. No suspicious soft tissue calcifications or masses. IMPRESSION: Bilateral osteoarthrosis, moderate at the medial femorotibial compartments bilaterally. Reviewed by: Xavier Desai MD on 08/21/2023 2:59 PM PDT Approved by: Xavier Desai MD on 08/21/2023 2:59 PM PDT Station ID: [id number]
== END 2023-08-21 23:59 | disposition home or self-care (01) ==
LOC: DI.WOS 08:00
PROVIDERS: ATTEND Physician Assistant Surgical
DX: M17.0 Bilateral primary osteoarthritis of knee (principal)

== ENCOUNTER 2023-10-20 07:39 | Outpatient (CLI) | payer OTHER ==
[2023-10-20 12:49] LABS: CHOL/HDL RATIO 2.9 (<4.4); CHOLESTEROL 111 mg/dL; HDL CHOLESTEROL 38 mg/dL; LDL CHOLESTEROL,CALCULATED 60 mg/dL; LDL/HDL RATIO 1.6 (<4.4); TRIGLYCERIDES 65 mg/dL (48-352); VLDL CHOLESTEROL 13 mg/dL
== END 2023-10-20 07:40 | disposition home or self-care (01) ==
LOC: LAB.N 07:39
PROVIDERS: ATTEND Nurse Practitioner Acute Care
DX: I25.810 Atherosclerosis of coronary artery bypass graft(s) without angina pectoris (principal); E78.2 Mixed hyperlipidemia
CPT/HCPCS: 36415; 80061; 83721

== ENCOUNTER 2024-01-07 08:00 | Outpatient (CLI) | payer OTHER | END 2024-01-07 23:59 | disposition home or self-care (01) | LOC: LAB.N 08:00 | PROVIDERS: ATTEND Physician Assistant | DX: R30.0 Dysuria (principal) | CPT/HCPCS: 87086 ==